=== PATIENT | male | born 1955 | race Caucasian/White ===

== ENCOUNTER 2017-05-31 11:29 | Day surgery (SDC) | payer BC ==
[~2017-05-31 11:29] MED LIST: CEPH500C3 PO; PRIL20TA2 PO
[2017-05-31] MEDS ORDERED: PROPOFOL 200 MG/20 ML AMP IV ONE (11:55)
[2017-05-31] MEDS ORDERED: NIAC500T5 PO (12:12)
[2017-05-31] MEDS ORDERED: APIX5TAB PO (12:12)
[2017-05-31] MEDS ORDERED: VITA250T3 PO (12:12)
[2017-05-31] MEDS ORDERED: METO50TA PO (12:12)
[2017-05-31] MEDS ORDERED: CHOL5000 PO (12:12)
[2017-05-31] MEDS ORDERED: OMEP20TA PO (12:12)
[2017-05-31] MEDS ORDERED: DILT120C9 PO (12:12)
[2017-05-31] MEDS ORDERED: DIGO0.25 PO (12:12)
[2017-05-31] MEDS ORDERED: CHLORHEXIDINE GLUCONATE 2 % 1 PACK (2 CLOTHS) TOPICAL PRN (12:30)
[2017-05-31] MEDS ORDERED: SODIUM CHLORID 0.9% 500 ML IV PRN (12:30)
[2017-05-31] MEDS ORDERED: POVIDONE IODINE 5% (ANTISEPSIS KIT) 4 APPLICATIONS EACH NARE PRN (12:30)
[2017-05-31] MEDS ORDERED: LACTATED RINGER'S 1000 ML IV PRN (12:30)
[2017-05-31] MEDS ORDERED: INSULIN HUMAN REGULAR 1,000 UNITS/10 ML VIAL SQ PRN (12:30)
[2017-05-31] MEDS ORDERED: METOPROLOL TARTRATE 25 MG TAB PO PRN (12:30)
--- NOTE | 2017-06-01 21:01 | EKG ---
Date Performed: 05/31/2017 Time Performed: 12:47:00 PTAGE: 62 years EKG: Atrial fibrillation. Consider anterolateral ischemia Abnormal ECG NO PREVIOUS TRACING DOCTOR: Mayur Ellis Interpretating Date/Time 06/01/2017 21:00:10
--- NOTE | 2017-06-01 23:09 | MR ---
cc: ITZEL OCHOA MD DATE 05/31/17 INDICATIONS Atrial fibrillation with rapid ventricular response. PROCEDURE PERFORMED DC cardioversion. PROCEDURE After the patient was sedated by anesthesia 200 joules biphasic shock was delivered and converted the patient to sinus bradycardia. The patient remained stable, discharged to home in stable condition. DIAGNOSIS Successful cardioversion of atrial fibrillation. DISPOSITION Mr. Heath will continue his current medical program. I will see him back for followup in our office after discharge. Itzel Ochoa MD OQ/EO /3:21 PM /10:59 PM
== END 2017-05-31 16:04 | disposition home or self-care (01) ==
LOC: HDOC 11:29 → HDIC 11:30 → HDOC 16:04
PROVIDERS: ATTEND Internal Medicine Interventional Cardiology
DX: I48.91 Unspecified atrial fibrillation (principal); E78.5 Hyperlipidemia, unspecified; I73.9 Peripheral vascular disease, unspecified; K21.9 Gastro-esophageal reflux disease without esophagitis; K57.90 Diverticulosis of intestine, part unspecified, without perforation or abscess without bleeding; K22.70 Barrett's esophagus without dysplasia; Z79.01 Long term (current) use of anticoagulants; Z79.899 Other long term (current) drug therapy
CPT/HCPCS: 92960; 93005

== ENCOUNTER 2017-06-07 11:20 | Day surgery (SDC) | payer BC ==
[~2017-06-07 11:20] MED LIST changes: +APIX5TAB PO; -CEPH500C3 PO; +CHOL5000 PO; +DIGO0.25 PO; +DILT120C9 PO; +METO50TA PO; +NIAC500T5 PO; +OMEP20TA PO; -PRIL20TA2 PO; +PROPOFOL 200 MG/20 ML AMP IV ONE; +VITA250T3 PO; +ePHEDrine/NS 25 MG/5 ML SYR IV ONE
[2017-06-07] MEDS ORDERED: METOPROLOL TARTRATE 25 MG TAB PO PRN (11:45)
[2017-06-07] MEDS ORDERED: CHLORHEXIDINE GLUCONATE 2 % 1 PACK (2 CLOTHS) TOPICAL PRN (11:45)
[2017-06-07] MEDS ORDERED: LACTATED RINGER'S 1000 ML IV PRN (11:45)
[2017-06-07] MEDS ORDERED: INSULIN HUMAN REGULAR 1,000 UNITS/10 ML VIAL SQ PRN (11:45)
[2017-06-07] MEDS ORDERED: SODIUM CHLORID 0.9% 500 ML IV PRN (11:45)
[2017-06-07] MEDS ORDERED: DILT120C9 PO (11:54)
[2017-06-07] MEDS ORDERED: MULT400T PO (11:54)
--- NOTE | 2017-06-08 07:32 | MR ---
cc: ITZEL OCHOA DATE: 06/07/2017 INDICATION Atrial fibrillation, recurrent. PROCEDURE PERFORMED DC cardioversion. PROCEDURE After the patient was sedated by Anesthesia, a 200 joule biphasic shock was delivered and converted the patient into sinus rhythm. The patient remained stable and was discharged home in stable condition. DIAGNOSIS Successful cardioversion of atrial fibrillation. DISPOSITION Mr. Heath will continue his current medical program including antiarrhythmic therapy with Multaq. I will see him back for follow-up in our office after discharge. Itzel Ochoa MD OQ/LUCITA /2:28 PM /7:26 AM
--- NOTE | 2017-06-08 11:55 | EKG ---
Date Performed: 06/07/2017 Time Performed: 11:35:44 PTAGE: 62 years EKG: Atrial fibrillation. Septal ST-T changes are nonspecific Compared to prior tracing no signi ficant change Abnormal ECG PREVIOUS TRACING : 05/31/2017 12.47 DOCTOR: Rich Casper Interpretating Date/Time 06/08/2017 11:53:34
--- NOTE | 2017-06-08 12:23 | EKG ---
Date Performed: 06/07/2017 Time Performed: 15:30:10 PTAGE: 62 years EKG: Sinus bradycardia. Ant/septal and lateral T wave changes are nonspecific Borderline ECG PREVIOUS TRACING : 06/07/2017 11.35 Sinus rhythm has replaced atrial fibrillation from the old tracing. DOCTOR: Rich Casper Interpretating Date/Time 06/08/2017 12:21:22
== END 2017-06-07 15:39 | disposition home or self-care (01) ==
LOC: HDOC 11:20 → HDIC 11:21 → HDOC 15:39
PROVIDERS: ATTEND Internal Medicine Interventional Cardiology
DX: I48.0 Paroxysmal atrial fibrillation (principal); E78.5 Hyperlipidemia, unspecified; I73.9 Peripheral vascular disease, unspecified; K21.9 Gastro-esophageal reflux disease without esophagitis; Z85.828 Personal history of other malignant neoplasm of skin; Z87.891 Personal history of nicotine dependence; Z79.01 Long term (current) use of anticoagulants; Z79.899 Other long term (current) drug therapy
CPT/HCPCS: 92960; 93005

== ENCOUNTER 2017-08-03 20:19 | Observation (INO) | payer BC ==
[~2017-08-03] VITALS: Ht 172.7 cm; Wt 85.0 kg
[~2017-08-03 20:19] MED LIST changes: +AMIO200T PO; -DIGO0.25 PO; -DILT120C9 PO; +MULT400T PO; -OMEP20TA PO; +OMEP20TA93 PO; -PROPOFOL 200 MG/20 ML AMP IV ONE; -ePHEDrine/NS 25 MG/5 ML SYR IV ONE
[2017-08-03 20:25] VITALS: BP 176/92; PULSE 53; RESP 16; TEMP 97.8; O2SAT 97
[2017-08-03] MEDS ORDERED: COQ130CA PO (20:34)
[2017-08-03] MEDS ORDERED: AMLO5TAB2 PO (20:34)
[2017-08-03 21:08] LABS: AUTOMATED NEUTROPHIL # 3.7 TH/MM3 (1.8-7.7); BASOPHIL % 0.7 % (0.0-2.0); EOSINOPHIL # 0.1 TH/MM3 (0-0.4); EOSINOPHIL % 2.6 % (0.0-4.0); HEMATOCRIT 45.8 % (39.0-51.0); HEMO FLAGS DIFF FINAL; LYMPHOCYTE # 0.7 TH/MM3 (1.0-4.8); MEAN CORPUSCULAR HEMOGLOBIN 30.4 PG (27.0-34.0); MEAN CORPUSCULAR HGB CONC 34.1 % (32.0-36.0); NEUT % 74.7 % (16.0-70.0); PLATELET COUNT 115 TH/MM3 (150-450); RED BLOOD COUNT 5.15 MIL/MM3 (4.50-5.90); RED CELL DISTRIBUTION WIDTH 14.5 % (11.6-17.2); WHITE BLOOD COUNT 4.9 TH/MM3 (4.0-11.0)
[2017-08-03 21:20] LABS: APTT (PATIENT) 30.1 SEC (24.3-30.1); PROTHROMBIN TIME - PATIENT 10.9 SEC (9.8-11.6)
[2017-08-03] MEDS ORDERED: SODIUM CHLORIDE 0.9% FLUSH 10 ML FLUSH IVF PRN (21:30)
[2017-08-03] MEDS ORDERED: SODIUM CHLORID 0.9% 500 ML INJ 500 ML IV ONE (21:30)
[2017-08-03 21:41] LABS: ALT (GPT) 23 U/L (12-78); ANION GAP 5 MEQ/L (5-15); AST (GOT) 14 U/L (15-37); BICARBONATE 29.3 MEQ/L (21.0-32.0); BLOOD UREA NITROGEN 17 MG/DL (7-18); CHLORIDE 104 MEQ/L (98-107); GLOMERULAR FILTRATION RATE 69 ML/MIN (>89); POTASSIUM 4.4 MEQ/L (3.5-5.1); SODIUM (NA) 138 MEQ/L (136-145)
[2017-08-03 21:44] LABS: ALKALINE PHOSPHATASE 70 U/L (45-117); TOTAL BILIRUBIN ADULT 0.5 MG/DL (0.2-1.0)
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
[2017-08-03 22:29] LABS: BLOOD, URINE NEG (NEG); GLUCOSE,URINE NEG (NEG); KETONE, URINE NEG (NEG); NITRITE,URINE NEG (NEG); URINE COLOR YELLOW (YELLW/STRAW)
[2017-08-03 22:33] LABS: COMMENT (UR) CULT NOT INDICATED; CULTURE IF INDICATED CULT NOT INDICATED
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
--- NOTE | 2017-08-03 22:35 | RADRPT ---
EXAM DATE/TIME: 08/03/2017 21:30 [facility] COMPARISON: No previous studies available for comparison. INDICATIONS : Syncopal episode. MEDICAL HISTORY : None. SURGICAL HISTORY : CABG. ENCOUNTER: Initial ACUITY: 1 day PAIN SCORE: 0/10 LOCATION: Bilateral chest FINDINGS: A single view of the chest demonstrates the lungs to be symmetrically aerated without evidence of mas s, infiltrate or effusion. Mild linear atelectasis at the lower lateral lung base. No evidence of p neumothorax. The cardiomediastinal contours are unremarkable. Osseous structures are intact. CONCLUSION: Mild left lower lung atelectasis. Otherwise negative exam. Harris Jolly MD on August 03, 2017 at 22:33 Board Certified Radiologist. This report was verified electronically.
--- NOTE | 2017-08-03 22:37 | RADRPT ---
EXAM DATE/TIME: 08/03/2017 21:46 [facility] COMPARISON: No previous studies available for comparison. INDICATIONS : Dizziness. RADIATION DOSE: 35.79 CTDIvol (mGy) MEDICAL HISTORY : Cardiovascular disease. Gastroesophageal reflux disease. SURGICAL HISTORY : Discectomy, lumbar. ENCOUNTER: Initial ACUITY: 1 day PAIN SCALE: 0/10 LOCATION: cranial TECHNIQUE: Multiple contiguous axial images were obtained of the head. Using automated exposure control and adj ustment of the mA and/or kV according to patient size, radiation dose was kept as low as reasonably a chievable to obtain optimal diagnostic quality images. DICOM format image data is available electro nically for review and comparison. FINDINGS: CEREBRUM: The ventricles are normal for age. No evidence of midline shift, mass lesion, hemorrhage or acute in farction. No extra-axial fluid collections are seen. POSTERIOR FOSSA: The cerebellum and brainstem are intact. The 4th ventricle is midline. The cerebellopontine angle i s unremarkable. EXTRACRANIAL: The visualized portion of the orbits is intact. Mild mucosal thickening in the posterior medial left maxillary sinus. SKULL: The calvaria is intact. No evidence of skull fracture. CONCLUSION: 1. Age-appropriate atrophy. 2. Mild left maxillary sinus disease. Harris Jolly MD on August 03, 2017 at 22:34 Board Certified Radiologist. This report was verified electronically.
[2017-08-03 22:57] VITALS: BP 192/89; PULSE 51; RESP 18; O2SAT 97
[2017-08-03] MEDS ORDERED: GADODIAMIDE PF 287 MG/ML 5 ML VIAL (for RAD MRI) IVCONTRAST ONE (23:07)
[2017-08-03 23:38] VITALS: BP 153/73; PULSE 47; RESP 18; O2SAT 96
[2017-08-03 23:59] LABS: CREATINE KINASE 78 U/L (39-308)
[2017-08-04] MEDS ORDERED: BISACODYL 10 MG SUPP RECTAL PRN (00:45)
[2017-08-04] MEDS ORDERED: ACETAMINOPHEN 325 MG TAB PO PRN (00:45)
[2017-08-04] MEDS ORDERED: SODIUM CHLORIDE 0.9% FLUSH 10 ML FLUSH IV FLUSH PRN (00:45)
[2017-08-04] MEDS ORDERED: MAGNESIUM HYDROXIDE SUSP 30 ML CUP PO PRN (00:45)
[2017-08-04] MEDS ORDERED: SENNOSIDES 8.6 MG TAB PO PRN (00:45)
[2017-08-04] MEDS ORDERED: LACTULOSE SYRUP 20 GM/30 ML CUP PO PRN (00:45)
[2017-08-04] MEDS ORDERED: ONDANSETRON HCL 4 MG/2 ML VIAL IVP PRN (00:45)
[2017-08-04] MEDS ORDERED: NALOXONE HCL 0.4 MG/ML AMP IV PUSH PRN (00:45)
--- NOTE | 2017-08-04 00:58 | HHI.HP ---
[facility] Primary Care Physician Mary Ellen Majano MD Admission Diagnosis symptomatic bradycardia, presyncope Diagnoses: Travel History International Travel<30 Days: No Contact w/Intl Traveler <30 Da: No Traveled to Known Affected Are: No History of Present Illness 62-year-old male with a past medical history significant for atrial fibrillation , status post ablation on 07/14, hypertension and GERD presents after a presyncopal episode. The patient reports he was [place] on the freeway when he had a terrible right-sided headache, tunnel vision with accompanying lightheadedness. He felt as though he was going to pass out and pulled over. The sensation then resolved and he was able to continue driving. Patient reports he had an episode similar to this on 06/28 which was worked up at [facility]. Patient was found to be bradycardic in the emergency department with lowest recorded heart rate of 47. EKG showed sinus bradycardia with a heart rate of 54. The patient had carotid ultrasound and DARCI done on 07/14/17 which were within normal limits. His data analytics developer is Dr. Ochoa. He takes amiodarone, metoprolol and amlodipine daily. Review of Systems Denies fever or chills Denies blurry vision, otorrhea, rhinorrhea Positive headache Denies sore throat and cough No chest pain, palpitations, shortness of breath No abdominal pain Denies constipation/diarrhea/nausea/vomiting Denies muscle pain/weakness No rashes Past Family Social History Past Medical History Atrial fibrillation status post 3 cardioversions and an ablation on 07/14/2017 at [facility] in [place] Hypertension GERD Past Surgical History Bilateral popliteal aneurysm repairs Remote history of inguinal hernia repair L5-S1 discectomy Reported Medications Reported Meds & Active Scripts Active Reported Amlodipine (Amlodipine Besylate) 5 Mg Tab 5 Mg PO DAILY Coq10 (Coenzyme Q10 (Ubidecarenone)) 30 Mg Cap 1 Tab PO DAILY Amiodarone (Amiodarone HCl) 200 Mg Tab 200 Mg PO BID Vitamin D3 (Cholecalciferol) 5,000 Unit Cap 5,000 Units PO DAILY Metoprolol Tartrate 50 Mg Tab 50 Mg PO BID Eliquis (Apixaban) 5 Mg Tab 5 Mg PO BID Omeprazole 20 Mg Tab 20 Mg PO DAILY Niacin 500 Mg Tab 500 Mg PO BID Vitamin C (Ascorbic Acid) 250 Mg Tab 400 Mg PO Allergies: Coded Allergies: shellfish derived (Verified Allergy, Severe, Anaphylaxis, 08/03/17) iodine (Verified Allergy, Unknown, 05/31/17) levofloxacin (Verified Allergy, Unknown, 05/31/17) Family History Mother with atrial fibrillation and a CVA. Social History Quit tobacco 10 years ago, has a [id number] history of smoking. Denies alcohol and illicit drugs. Physical Exam Vital Signs Vital Signs Date Time Temp Pulse Resp B/P (MAP) Pulse Ox O2 Delivery O2 Flow Rate FiO2 08/03/17 23:38 47 18 153/73 (99) 96 Room Air 08/03/17 22:57 51 18 192/89 (123) 97 Room Air 08/03/17 20:57 Room Air 08/03/17 20:25 97.8 53 16 176/92 (120) 97 Physical Exam GENERAL: male sitting up in bed SKIN: No rashes, ecchymoses or lesions. Cool and dry. HEAD: Atraumatic. Normocephalic. No temporal or scalp tenderness. EYES: Pupils equal round and reactive. Extraocular motions intact. No scleral icterus. No injection or drainage. ENT: Nose without bleeding, purulent drainage or septal hematoma. Throat without erythema, tonsillar hypertrophy or exudate. Uvula midline. Airway patent. NECK: Trachea midline. No JVD or lymphadenopathy. Supple, nontender, no meningeal signs. CARDIOVASCULAR: Bradycardia. Regular rhythm. No murmurs/rubs/gallops. RESPIRATORY: Clear to auscultation. Breath sounds equal bilaterally. No wheezes , rales, or rhonchi. GASTROINTESTINAL: Abdomen soft, non-tender, nondistended. No hepato-splenomegaly , or palpable masses. No guarding. MUSCULOSKELETAL: Extremities without clubbing, cyanosis, or edema. No joint tenderness, effusion, or edema noted. No calf tenderness. Negative Homans sign bilaterally. NEUROLOGICAL: Awake and alert. Cranial nerves II through XII intact. Motor and sensory grossly within normal limits. Normal speech. Laboratory Laboratory Tests Test 08/03/17 20:50 08/03/17 22:20 White Blood Count 4.9 Red Blood Count 5.15 Hemoglobin 15.6 Hematocrit 45.8 Mean Corpuscular Volume 89.0 Mean Corpuscular Hemoglobin 30.4 Mean Corpuscular Hemoglobin Concent 34.1 Red Cell Distribution Width 14.5 Platelet Count 115 Mean Platelet Volume 10.6 Neutrophils (%) (Auto) 74.7 Lymphocytes (%) (Auto) 14.0 Monocytes (%) (Auto) 8.0 Eosinophils (%) (Auto) 2.6 Basophils (%) (Auto) 0.7 Neutrophils # (Auto) 3.7 Lymphocytes # (Auto) 0.7 Monocytes # (Auto) 0.4 Eosinophils # (Auto) 0.1 Basophils # (Auto) 0.0 CBC Comment DIFF FINAL Differential Comment Prothrombin Time 10.9 Prothromb Time International Ratio 1.0 Activated Partial Thromboplast Time 30.1 Blood Urea Nitrogen 17 Creatinine 1.08 Random Glucose 102 Total Protein 7.0 Albumin 3.6 Calcium Level 8.0 Magnesium Level 2.0 Alkaline Phosphatase 70 Aspartate Amino Transf (AST/SGOT) 14 Alanine Aminotransferase (ALT/SGPT) 23 Total Bilirubin 0.5 Sodium Level 138 Potassium Level 4.4 Chloride Level 104 Carbon Dioxide Level 29.3 Anion Gap 5 Estimat Glomerular Filtration Rate 69 Total Creatine Kinase 78 Troponin I LESS THAN 0.02 Urine Color YELLOW Urine Turbidity HAZY Urine pH 7.0 Urine Specific Strunk 1.015 Urine Protein NEG Urine Glucose (UA) NEG Urine Ketones NEG Urine Occult Blood NEG Urine Nitrite NEG Urine Bilirubin NEG Urine Urobilinogen LESS THAN 2.0 Urine Leukocyte Esterase NEG Urine RBC 1 Urine WBC 1 Microscopic Urinalysis Comment CULT NOT INDICATED Result Diagram: 08/03/17204908/03/172049 Caprini VTE Risk Assessment Caprini VTE Risk Assessment: Mod/High Risk (score >= 2) Caprini Risk Assessment Model Point Value = 1 Point Value = 2 Point Value = 3 Point Value = 5 Age 41-60 Minor surgery BMI > 25 kg/m2 Swollen legs Varicose veins or History of unexplained or recurrent spontaneous Oral contraceptives or hormone replacement Sepsis (< 1 month) Serious lung disease, including pneumonia (< 1 month) Abnormal pulmonary function Acute myocardial infarction Congestive heart failure (< 1 month) History of inflammatory bowel disease Medical patient at bed rest Age 61-74 Arthroscopic surgery Major open surgery (> 45 min) Laparoscopic surgery (> 45 min) Malignancy Confined to bed (> 72 hours) Immobilizing plaster cast Central venous access Age >= 75 History of VTE Family history of VTE Factor V Leiden Prothrombin [id number] Lupus anticoagulant Anticardiolipin antibodies Elevated serum homocysteine Heparin-induced thrombocytopenia Other congenital or acquired thrombophilia Stroke (< 1 month) Elective arthroplasty Hip, pelvis, or leg fracture Acute spinal cord injury (< 1 month) Prophylaxis Regimen Total Risk Factor Score Risk Level Prophylaxis Regimen 0-1 Low Early ambulation 2 Moderate Order ONE of the following: *Sequential Compression Device (SCD) *Heparin 5000 units SQ BID 3-4 Higher Order ONE of the following medications: *Heparin 5000 units SQ TID *Enoxaparin/Lovenox 40 mg SQ daily (WT < 150 kg, CrCl > 30 mL/min) *Enoxaparin/Lovenox 30 mg SQ daily (WT < 150 kg, CrCl > 10-29 mL/min) *Enoxaparin/Lovenox 30 mg SQ BID (WT < 150 kg, CrCl > 30 mL/min) AND/OR *Sequential Compression Device (SCD) 5 or more Highest Order ONE of the following medications: *Heparin 5000 units SQ TID (Preferred with Epidurals) *Enoxaparin/Lovenox 40 mg SQ daily (WT < 150 kg, CrCl > 30 mL/min) *Enoxaparin/Lovenox 30 mg SQ daily (WT < 150 kg, CrCl > 10-29 mL/min) *Enoxaparin/Lovenox 30 mg SQ BID (WT < 150 kg, CrCl > 30 mL/min) AND *Sequential Compression Device (SCD) Assessment and Plan Assessment and Plan 62-year-old male with history of atrial fibrillation status post ablation, hypertension and GERD presents with presyncopal episode and symptomatic bradycardia. 1. Presyncope Patient with carotid ultrasound and DARCI within normal limits on 07/14/17, per patient report Requested records from [facility] in [place] Suspect secondary to bradycardia Decrease metoprolol to half patient's home dose Consulted patient's data analytics developer, Dr. Ochoa, appreciate recommendations 2. History of atrial fibrillation Patient status post ablation on 07/14/17 Continue home amiodarone, Eliquis, metoprolol at half dosing 3. Hypertension Continue home meds 4. GERD Continue PPI FEN Heart healthy diet Electrolytes: Monitor and replete when necessary On Eliquis Discussed with ER physician at length Shelbie Cuevas MD Aug 04, 2017 00:58
[2017-08-04 04:03] VITALS: PULSE 42
[2017-08-04 04:28] VITALS: BP 115/65; PULSE 47; RESP 18; TEMP 97.9; O2SAT 99
[2017-08-04] MEDS ORDERED: HEPARIN SODIUM - SQ 10,000 UNITS/ML VIAL SQ SCH (06:00)
[2017-08-04 06:55] LABS: AUTOMATED NEUTROPHIL # 2.9 TH/MM3 (1.8-7.7); BASOPHIL % 0.7 % (0.0-2.0); EOSINOPHIL # 0.2 TH/MM3 (0-0.4); EOSINOPHIL % 4.2 % (0.0-4.0); HEMATOCRIT 42.5 % (39.0-51.0); LYMPHOCYTE # 0.7 TH/MM3 (1.0-4.8); MEAN CELL VOLUME 89.7 FL (80.0-100.0); MEAN CORPUSCULAR HGB CONC 33.4 % (32.0-36.0); MONO % 8.6 % (0.0-8.0); NEUT % 70.5 % (16.0-70.0); PLATELET COUNT 99 TH/MM3 (150-450); RED BLOOD COUNT 4.74 MIL/MM3 (4.50-5.90); RED CELL DISTRIBUTION WIDTH 14.3 % (11.6-17.2); WHITE BLOOD COUNT 4.1 TH/MM3 (4.0-11.0)
[2017-08-04 07:09] LABS: BICARBONATE 28.2 MEQ/L (21.0-32.0); POTASSIUM 3.9 MEQ/L (3.5-5.1)
[2017-08-04 07:14] LABS: HEMO FLAGS AUTO DIFF
[2017-08-04 07:45] VITALS: BP 134/74; PULSE 50; RESP 20; TEMP 97.5; O2SAT 97
[2017-08-04] MEDS ORDERED: APIXABAN 5 MG TABLET PO SCH (09:00)
[2017-08-04] MEDS ORDERED: PNEUMOCOCCAL POLYVALENT INJ 25 MCG/0.5 ML SYR IM ONE (09:00)
[2017-08-04] MEDS ORDERED: PANTOPRAZOLE SOD 20 MG DELAYED RELEASE TAB PO SCH (09:00)
[2017-08-04] MEDS ORDERED: SODIUM CHLORIDE 0.9% FLUSH 10 ML FLUSH IV FLUSH SCH (09:00)
[2017-08-04] MEDS ORDERED: AMIODARONE 200 MG TAB PO SCH (09:00)
[2017-08-04] MEDS ORDERED: METOPROLOL TARTRATE 25 MG TAB PO SCH (09:00)
[2017-08-04] MEDS ORDERED: DOCUSATE SODIUM 50 MG/SENNA 8.6 MG TAB PO SCH (09:00)
[2017-08-04] MEDS ORDERED: amLODIPine BESYLATE 5 MG TAB PO SCH (09:00)
[2017-08-04 09:08] LABS: PLATELET ESTIMATE SMEAR LOW (NORMAL); PLATELET MORPHOLOGY ENLARGED (NORMAL); SCAN/DIFF AUTO DIFF CONFIRMED
--- NOTE | 2017-08-04 09:24 | HHI.PR ---
Subjective Remarks Follow up for presyncope, bradycardia. The patient reports feeling well this morning, denies any lightheadedness, dizziness, chest pain, palpitations, or shortness of breath. He is concerned about the etiology of his symptoms. This is the second episode that occurred while driving. He explains that he experiences severe pressure pains behind the right eye after these episodes. Denies ever having an MRI. He reports he has been taking his amiodarone and metoprolol 50mg bid in the morning, and norvasc 5mg at 7pm. He states his norvasc was recently cut in half by Dr. Ochoa. He started taking his metoprolol again 1 week after after his blood pressure was over 200. He has been on the same dose of amiodarone since his ablation. Objective Vitals Vital Signs Date Time Temp Pulse Resp B/P (MAP) Pulse Ox O2 Delivery O2 Flow Rate FiO2 08/04/17 07:45 97.5 50 20 134/74 (94) 97 08/04/17 04:28 97.9 47 18 115/65 (82) 99 08/04/17 04:03 42 08/03/17 23:38 47 18 153/73 (99) 96 Room Air 08/03/17 22:57 51 18 192/89 (123) 97 Room Air 08/03/17 20:57 Room Air 08/03/17 20:25 97.8 53 16 176/92 (120) 97 I/O 08/03/17 08/03/17 08/03/17 08/04/17 08/04/17 08/04/17 07:00 15:00 23:00 07:00 15:00 23:00 Intake Total 242 ml Balance 242 ml Intake Oral 242 ml # Voids 3 Result Diagram: 08/04/17 0555 08/04/17 0555 Imaging Last Impressions Head CT 08/03/172118 Signed Impressions: Service Date/Time: Thursday, August 03, 2017 21:46 - CONCLUSION: 1. Age-appropriate atrophy. 2. Mild left maxillary sinus disease. Harris Jolly MD Chest X-Ray 08/03/172118 Signed Impressions: Service Date/Time: Thursday, August 03, 2017 21:30 - CONCLUSION: Mild left lower lung atelectasis. Otherwise negative exam. Harris Jolly MD Objective Remarks GENERAL: Well-nourished, well-developed middle aged male patient in NAD. SKIN: Warm and dry. No rash. HEENT: Normocephalic. Atraumatic.Pupils equal and round. Mucous membranes pink and moist. NECK: Supple. Trachea midline. CARDIOVASCULAR: Bradycardic, regular rhythm. S1, S2 noted. No murmur appreciated. RESPIRATORY: No accessory muscle use. Clear to auscultation. Breath sounds equal bilaterally. GASTROINTESTINAL: Abdomen soft, non-tender, nondistended. Normoactive bowel sounds x4. MUSCULOSKELETAL: No obvious deformities. Extremities without clubbing, cyanosis , or edema. Left cuello with abrasion and contusion. NEUROLOGICAL: Awake and alert. No obvious cranial nerve deficits. Motor grossly within normal limits. Normal speech. PSYCHIATRIC: Appropriate mood and affect; insight and judgment normal. Medications and IVs Current Medications Medications (Trade) Dose Ordered Sig/Jen Route Start Time Stop Time Status Last Admin (NS Flush) 2 ml UNSCH PRN IV FLUSH 08/04/17 00:45 (NS Flush) 2 ml BID IV FLUSH 08/04/17 09:00 (Tylenol) 650 mg Q4H PRN PO 08/04/17 00:45 (Zofran Inj) 4 mg Q6H PRN IVP 08/04/17 00:45 (Narcan Inj) 0.4 mg UNSCH PRN IV PUSH 08/04/17 00:45 (Carin-Colace) 1 tab BID PO 08/04/17 09:00 (Milk Of Magnesia Liq) 30 ml Q12H PRN PO 08/04/17 00:45 (Senokot) 17.2 mg Q12H PRN PO 08/04/17 00:45 (Dulcolax Supp) 10 mg DAILY PRN RECTAL 08/04/17 00:45 (Lactulose Liq) 30 ml DAILY PRN PO 08/04/17 00:45 (Cordarone) 200 mg BID PO 08/04/17 09:00 (Norvasc) 5 mg DAILY PO 08/04/17 09:00 (Eliquis) 5 mg BID PO 08/04/17 09:00 (Protonix) 20 mg DAILY PO 08/04/17 09:00 (Lopressor) 25 mg Q12HR PO 08/04/17 09:00 A/P Assessment and Plan 62-year-old male with history of atrial fibrillation status post ablation, hypertension and GERD presents with presyncopal episode and symptomatic bradycardia. Presyncope, suspect Symptomatic Bradycardia: HR in upper 40s upon arrival. EKG reviewed, shows sinus rk with HR 54. -Patient with carotid ultrasound and DARCI within normal limits on 07/14/17, per patient report -Requested records from [facility] in [place] -Decreased metoprolol to half patient's home dose, with hold parameters -Consulted patient's pond sawyer, Dr. Ochoa, appreciate recommendations Headache: patient reports severe right sided headaches after these presyncope episodes -head CT reviewed and unremarkable -check Brain MRI -currently headache resolved History of atrial fibrillation: Patient status post ablation on 07/14/17 -Continue home amiodarone, Eliquis, metoprolol at half dosing Hypertension -Continue home meds GERD -Continue PPI DVT Prophylaxis: on Macy Wolff PA-C Aug 04, 2017 9:24 am
--- NOTE | 2017-08-04 09:33 | EKG ---
Date Performed: 08/03/2017 Time Performed: 20:45:09 PTAGE: 62 years EKG: SINUS BRADYCARDIA WITH FREQUENT SUPRAVENTRICULAR PREMATURE COMPLEXES IN A BIGEMINAL PATTERN ABNORMAL RHYTHM ECG PREVIOUS TRACING : 06/07/2017 15.30 DOCTOR: Piyush Valencia Interpretating Date/Time 08/04/2017 09:33:16
--- NOTE | 2017-08-04 11:22 | MB ---
cc: YVONNE REHMAN DATE OF CONSULTATION: 08/04/2017 HISTORY OF PRESENT ILLNESS Mr. Heath is a 62-year-old white male, well known to my practice with a history of atrial fibrillation status post ablation on 07/13/2017. He developed right-sided headache, tunnel vision and lightheadedness when he was driving. He pulled over and his symptoms resolved. He was found to be bradycardic with heart rate of 47 and later down to 38. Currently he has no cardiac symptoms. He has not had any chest pain or shortness of breath. His blood pressure has been elevated. He has had sinus congestion for the last two weeks. PAST MEDICAL HISTORY Positive for: 1. ___ atrial fibrillation. 2. History of cardioversion and ablation at [facility] three weeks ago. 3. Hypertension. 4. Gastroesophageal reflux disease. 5. Bilateral popliteal aneurysm repair. 6. Remote history of inguinal hernia repair. 7. L5-S1 discectomy. ECHOCARDIOGRAM Echocardiogram showed borderline normal left ventricular systolic function with an ejection fraction of 50%. IMAGING STUDIES PET scan on 06/15/2017 showed fixed inferobasal defect suggestive of inferobasal infarction but no evidence of ischemia. MEDICATION Medications at home include: 1. Amiodarone 200 mg a day. 2. Eliquis 5 mg twice a day. 3. Metoprolol 50 mg twice a day. 4. Vitamin D3. 5. Coenzyme Q10. 6. Vitamin C. 7. Niacin. 8. Omeprazole. 9. Fluticasone. 10. Amlodipine 5 mg a day. The patient has been also taking Tylenol sinus medication for his congestion. ALLERGIES LEVAQUIN, IODINE, SHELLFISH AND CONTRAST. SOCIAL HISTORY The patient does not smoke, quit smoking 10 years ago. He does not drink alcohol. FAMILY HISTORY Positive for CVA and atrial fibrillation in his mother. REVIEW OF SYSTEMS Review of systems is otherwise negative. PHYSICAL EXAMINATION VITAL SIGNS: Blood pressure 134/74, pulse 50 and regular. HEENT: Negative. NECK: 2+ carotid upstrokes. No bruits. LUNGS: Clear. HEART: Regular with no murmur, gallop or rub. ABDOMEN: Soft. No bruits. EXTREMITIES: Without edema. 2+ distal pulses. NEUROLOGIC: Grossly nonfocal. EKG EKG was reviewed and showed sinus bradycardia, PACs, no acute changes. LABORATORY DATA Hemoglobin 14.2, potassium 3.9, creatinine 1.0, AST 14, ALT 23, troponin normal. DIAGNOSIS 1. Presyncope. 2. ___ atrial fibrillation, status post ablation. 3. Hypertension. 4. Gastroesophageal reflux disease. DISPOSITION Mr. Heath will decrease his metoprolol dose. He remains stable from cardiac standpoint. He will continue antiarrhythmic therapy with amiodarone. He has stayed in sinus rhythm since his ablation. He can be discharged home from a cardiac standpoint. I will see him back for followup in our office in 2 weeks as outpatient. MD LUCAS Berman/TLL /10:36 AM /10:53 AM
[2017-08-04 12:16] VITALS: BP 133/79; PULSE 58; RESP 22; TEMP 98.2; O2SAT 96
--- NOTE | 2017-08-04 13:41 | RADRPT ---
EXAM DATE/TIME: 08/04/2017 11:41 [facility] COMPARISON: No previous studies available for comparison. INDICATIONS : Syncope MEDICAL HISTORY : Cardiovascular disease. Gastroesophageal reflux disease SURGICAL HISTORY : Discectomy, lumbar ENCOUNTER: Subsequent ACUITY: 4-6 days PAIN SCORE: 0/10 LOCATION: cranial Please note a normal MRA of the brain does not entirely exclude the possibility of a small aneurysm, nor the possibility of distal intracranial vessel disease. TECHNIQUE: 3D time of flight MRA was performed. Source images, multiplanar STS MIP, and 3D volume MIP reconstru ctions were reviewed. FINDINGS: Anterior circulation: Distal intracranial internal carotid arteries are patent with flow extending to the middle and anteri or cerebral arteries. There is no evidence for aneurysm, vessel truncation or stenosis, and no eviden ce for vascular malformation. Posterior circulation: Symmetric distal vertebral arteries with flow extending to basilar artery. There is no evidence for aneurysm, vessel truncation or stenosis, and no evidence for vascular malformation. CONCLUSION: 1. Unremarkable MRA examination of the brain. Specifically, patent symmetrical distal vertebral arter ies with patent basilar artery. Olaf Whipple MD on August 04, 2017 at 13:37 Board Certified Radiologist. This report was verified electronically.
--- NOTE | 2017-08-04 13:51 | RADRPT ---
EXAM DATE/TIME: 08/04/2017 11:41 [facility] COMPARISON: CT BRAIN W/O CONTRAST, August 03, 2017, 21:46. INDICATIONS : Syncope. CONTRAST: 15 cc Omniscan (gadodiamide) IV MEDICAL HISTORY : GERD, cardiovasucular disease SURGICAL HISTORY : Fusion, lumbar. ENCOUNTER: Subsequent ACUITY: 4-6 days PAIN SCORE: 0/10 LOCATION: cranial TECHNIQUE: Multiplanar, multisequence MRI of the brain was performed both prior to and following the administrat ion of paramagnetic contrast. FINDINGS: CEREBRUM: The ventricles are normal for age. No evidence of midline shift, mass lesion, hemorrhage or acute in farction. No extraaxial fluid collections are seen. The pituitary gland and suprasellar cistern are normal in configuration. WHITE MATTER: No significant signal abnormalities are seen in the white matter. POSTERIOR FOSSA: The cerebellum and brainstem are intact. The 4th ventricle is midline. The cerebellopontine angle is unremarkable. The cerebellar tonsils are normal in position. DIFFUSION IMAGING: No focal areas of restricted diffusion are seen. No evidence of acute infarction. EXTRACRANIAL: The visualized portions of the orbits and paranasal sinuses are unremarkable except for trace fluid i n the left maxillary sinus. POST-CONTRAST: No abnormal areas of parenchymal or dural enhancement. No evidence of blood-brain barrier breakdown. CONCLUSION: Normal examination. Piyush Christianson MD on August 04, 2017 at 13:48 Board Certified Radiologist. This report was verified electronically.
[2017-08-04] MEDS ORDERED: METO25TA3 PO (14:03)
--- NOTE | 2017-08-04 14:04 | HHI.DCPOC ---
Discharge Care Plan Diagnosis: (1) Near syncope (2) Symptomatic bradycardia Goals to Promote Your Health * To prevent worsening of your condition and complications * To maintain your health at the optimal level Directions to Meet Your Goals Take your medications as prescribed Follow your dietary instruction Follow activity as directed Keep your appointments as scheduled Take your immunizations and boosters as scheduled If your symptoms worsen call your PCP, if no PCP go to Urgent Care Center or Emergency Room Smoking is Dangerous to Your Health. Avoid second hand smoke Call the 24-hour hour crisis hotline for domestic abuse at Macy Merritt PA-C Aug 04, 2017 14:04
[2017-08-08] MEDS ORDERED: CLIN300C5 PO (10:45)
[2017-08-08] MEDS ORDERED: HYDR-3580 PO (10:52)
== END 2017-08-04 15:06 | disposition home or self-care (01) ==
LOC: NEPE 20:19 → NEDA 23:06 → NEPFCDU 08-04 01:25
PROVIDERS: ADMIT Hospitalist; ATTEND Hospitalist
DX: R55 Syncope and collapse (principal); I48.91 Unspecified atrial fibrillation; I10 Essential (primary) hypertension; K21.9 Gastro-esophageal reflux disease without esophagitis; R00.1 Bradycardia, unspecified; R51 Headache; R42 Dizziness and giddiness; H53.489 Generalized contraction of visual field, unspecified eye; J32.0 Chronic maxillary sinusitis; Z79.01 Long term (current) use of anticoagulants; Z87.891 Personal history of nicotine dependence; Z79.899 Other long term (current) drug therapy; Z95.1 Presence of aortocoronary bypass graft; Z98.1 Arthrodesis status
CPT/HCPCS: 70450; 70544; 70553; 71010; 80048; 80053; 81001; 82550; 82948; 83735; 84484; 85025; 85610; 85730; 93005; 96360; 99285; A9579; G0378; J7040

== ENCOUNTER 2017-12-11 09:39 | Emergency (ER) | payer BC ==
[~2017-12-11] VITALS: Ht 172.7 cm; Wt 85.0 kg
[~2017-12-11 09:39] MED LIST changes: +AMLO5TAB2 PO; +CLIN300C5 PO; +COQ130CA PO; +HYDR-3580 PO; +METO25TA3 PO; -METO50TA PO; -MULT400T PO
[2017-12-11 09:41] VITALS: BP 172/82; PULSE 57; RESP 15; TEMP 97.8; O2SAT 100
[2017-12-11] MEDS ORDERED: CIAL20TA PO (10:07)
[2017-12-11] MEDS ORDERED: FLUT50SP EACH NARE (10:07)
[2017-12-11 10:35] VITALS: BP 133/79; PULSE 48; RESP 18; O2SAT 96
[2017-12-11] MEDS ORDERED: SODIUM CHLORIDE 0.9% FLUSH 10 ML FLUSH IVF PRN (10:45)
[2017-12-11 10:59] LABS: AUTOMATED NEUTROPHIL # 2.8 TH/MM3 (1.8-7.7); BASOPHIL % 0.5 % (0.0-2.0); EOSINOPHIL % 1.2 % (0.0-4.0); HEMATOCRIT 41.7 % (39.0-51.0); HEMOGLOBIN 14.1 GM/DL (13.0-17.0); LYMPH % 15.3 % (9.0-44.0); LYMPHOCYTE # 0.6 TH/MM3 (1.0-4.8); MEAN CELL VOLUME 90.1 FL (80.0-100.0); MEAN CORPUSCULAR HEMOGLOBIN 30.4 PG (27.0-34.0); MEAN CORPUSCULAR HGB CONC 33.8 % (32.0-36.0); MEAN PLATELET VOLUME 10.4 FL (7.0-11.0); MONO % 9.9 % (0.0-8.0); MONOCYTE # 0.4 TH/MM3 (0-0.9); NEUT % 73.1 % (16.0-70.0); PLATELET COUNT 108 TH/MM3 (150-450); RED BLOOD COUNT 4.63 MIL/MM3 (4.50-5.90); WHITE BLOOD COUNT 3.8 TH/MM3 (4.0-11.0)
[2017-12-11 11:07] LABS: BLOOD UREA NITROGEN 18 MG/DL (7-18); CALCIUM 8.1 MG/DL (8.5-10.1); CHLORIDE 107 MEQ/L (98-107); CREATININE 0.91 MG/DL (0.60-1.30); GLOMERULAR FILTRATION RATE 84 ML/MIN (>89); GLUCOSE,RANDOM 95 MG/DL (74-106); SODIUM (NA) 139 MEQ/L (136-145)
[2017-12-11 11:11] LABS: TROPONIN I LESS THAN 0.02 NG/ML (0.02-0.05)
--- NOTE | 2017-12-11 11:55 | RADRPT ---
EXAM DATE/TIME: 12/11/2017 11:43 [facility] COMPARISON: CT BRAIN W/O CONTRAST, August 03, 2017, 21:46. INDICATIONS : Numbness in lips today. RADIATION DOSE: 56.35 CTDIvol (mGy) MEDICAL HISTORY : Cardiovascular disease. SURGICAL HISTORY : None. ENCOUNTER: Initial ACUITY: 1 day PAIN SCALE: 4/10 LOCATION: Bilateral head TECHNIQUE: Multiple contiguous axial images were obtained of the head. Using automated exposure control and adj ustment of the mA and/or kV according to patient size, radiation dose was kept as low as reasonably a chievable to obtain optimal diagnostic quality images. DICOM format image data is available electro nically for review and comparison. FINDINGS: CEREBRUM: The ventricles are normal for age. No evidence of midline shift, mass lesion, hemorrhage or acute in farction. No extra-axial fluid collections are seen. POSTERIOR FOSSA: The cerebellum and brainstem are intact. The 4th ventricle is midline. The cerebellopontine angle i s unremarkable. EXTRACRANIAL: The visualized portion of the orbits is intact. Mucosal thickening is noted in the left maxillary sin us. SKULL: The calvaria is intact. No evidence of skull fracture. CONCLUSION: Stable negative exam. Peter Schultz MD on December 11, 2017 at 11:51 Board Certified Radiologist. This report was verified electronically.
--- NOTE | 2017-12-11 12:31 | PD ---
HPI . Perioral numbness Chief Complaint: Numbness/Tingling Time Seen by Provider: 10:00 Travel History International Travel<30 days: No Contact w/Intl Traveler<30days: No Traveled to known affect area: No History of Present Illness HPI This patient presents stating that he was sent here by his doctor for the evaluation of perioral numbness. Onset was 1 PM yesterday. It lasted about an hour. He states that the severity was 9/10. The symptoms recurred this morning but are much less severe. He reports no other associated symptoms such as extremity weakness, facial weakness, difficulty speaking. 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) Cardiovascular Problems: Yes (AFIB) High Cholesterol: No Chemotherapy: No Chest Pain: No Congestive Heart Failure: No Diabetes: No Diminished Hearing: No Diverticulitis: Yes Endocrine: No Gastrointestinal Disorders: Yes ( BARRETTS) GERD: Yes Genitourinary: No Immune Disorder: No Musculoskeletal: Yes (TORN TENDON IN LT SHOULDER) Neurologic: No Psychiatric: No Reproductive: No Respiratory: No Immunizations Current: No Myocardial Infarction: Yes Radiation Therapy: No Tetanus Vaccination: > 5 Years Influenza Vaccination: Yes Past Surgical History Abdominal Surgery: Yes (b/l groin hernia repair as a child) Cardiac Surgery: Yes (heart ablation) Other Surgery: Yes (ABLATION, VASCULAR BYPASS BILAT LEGS, L5 S1 DISC REMOVAL, BILAT INGUINEAL) Social History Alcohol Use: No (no acohol since april) Tobacco Use: No Substance Use: No Allergies-Medications (Allergen,Severity, Reaction): Coded Allergies: shellfish derived (Verified Allergy, Severe, Anaphylaxis, 08/08/17) iodine (Verified Allergy, Unknown, 08/08/17) levofloxacin (Verified Allergy, Unknown, 08/08/17) Reported Meds & Prescriptions Reported Meds & Active Scripts Active Metoprolol Tartrate 25 Mg Tab 25 Mg PO Q12HR Reported Fluticasone Nasal [place] 50 Mcg/Act Naspr 50 Mcg EACH NARE BID 50 mcg/spray Amlodipine (Amlodipine Besylate) 5 Mg Tab 5 Mg PO DAILY Coq10 (Coenzyme Q10 (Ubidecarenone)) 30 Mg Cap 1 Tab PO DAILY Vitamin D3 (Cholecalciferol) 5,000 Unit Cap 5,000 Units PO DAILY Eliquis (Apixaban) 5 Mg Tab 5 Mg PO BID Omeprazole 20 Mg Tab 20 Mg PO DAILY Niacin 500 Mg Tab 500 Mg PO BID Vitamin C (Ascorbic Acid) 250 Mg Tab 400 Mg PO Review of Systems Except as stated in HPI: all other systems reviewed are Neg Physical Exam Narrative GENERAL: Awake and alert and in no distress. SKIN: warm/dry. HEAD: Normocephalic. Atraumatic. EYES: Pupils equal and round. No scleral icterus. No injection or drainage. ENT: No nasal bleeding or discharge. Mucous membranes pink and moist. NECK: Trachea midline. Full range of motion without pain.. CARDIOVASCULAR: Regular rate and rhythm. RESPIRATORY: No accessory muscle use. Clear to auscultation. Breath sounds equal bilaterally. MUSCULOSKELETAL: No obvious deformities. NEUROLOGICAL: Awake and alert. Normal and equal muscular strength on forehead wrinkling, eye closing, smiling and tongue protruding. That is, there are no obvious cranial nerve deficits. 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 Finger- nose-finger exam is intact. Gait is normal. PSYCHIATRIC: Appropriate mood and affect; insight and judgment normal. Data Data Last Documented VS Vital Signs Date Time Temp Pulse Resp B/P (MAP) Pulse Ox O2 Delivery O2 Flow Rate FiO2 12/11/17 10:08 Room Air 12/11/17 09:41 97.8 57 15 172/82 (112) 100 Orders Orders Electrocardiogram (12/11/17 ) Complete Blood Count With Diff (12/11/17 10:31) Basic Metabolic Panel (Bmp) (12/11/17 10:31) Troponin I (12/11/17 10:31) Ct Brain W/O Iv Contrast(Rout) (12/11/17 10:31) Ecg Monitoring (12/11/17 10:31) Iv Access Insert/Monitor (12/11/17 10:31) Oximetry (12/11/17 10:31) Sodium Chloride 0.9% Flush (Ns Flush) (12/11/17 10:45) Labs Laboratory Tests Test 12/11/17 10:40 White Blood Count 3.8 TH/MM3 Red Blood Count 4.63 MIL/MM3 Hemoglobin 14.1 GM/DL Hematocrit 41.7 % Mean Corpuscular Volume 90.1 FL Mean Corpuscular Hemoglobin 30.4 PG Mean Corpuscular Hemoglobin Concent 33.8 % Red Cell Distribution Width 14.0 % Platelet Count 108 TH/MM3 Mean Platelet Volume 10.4 FL Neutrophils (%) (Auto) 73.1 % Lymphocytes (%) (Auto) 15.3 % Monocytes (%) (Auto) 9.9 % Eosinophils (%) (Auto) 1.2 % Basophils (%) (Auto) 0.5 % Neutrophils # (Auto) 2.8 TH/MM3 Lymphocytes # (Auto) 0.6 TH/MM3 Monocytes # (Auto) 0.4 TH/MM3 Eosinophils # (Auto) 0.0 TH/MM3 Basophils # (Auto) 0.0 TH/MM3 CBC Comment DIFF FINAL Differential Comment Blood Urea Nitrogen 18 MG/DL Creatinine 0.91 MG/DL Random Glucose 95 MG/DL Calcium Level 8.1 MG/DL Sodium Level 139 MEQ/L Potassium Level 4.2 MEQ/L Chloride Level 107 MEQ/L Carbon Dioxide Level 24.0 MEQ/L Anion Gap 8 MEQ/L Estimat Glomerular Filtration Rate 84 ML/MIN Troponin I LESS THAN 0.02 NG/ML MDM Medical Decision Making Medical Screen Exam Complete: Yes Emergency Medical Condition: Yes Interpretation(s) EKG shows a sinus rhythm. Rate is 53. Differential Diagnosis My differential diagnosis of paresthesias includes but is not limited to anxiety , radiculopathy, peripheral neuropathy, peripheral vascular disease, compartment syndrome Narrative Course This patient presents for the evaluation of paresthesias. He has a normal neurological examination. Last Impressions Head CT 12/11/17 1031 Signed Impressions: Service Date/Time: Monday, December 11, 2017 11:43 - CONCLUSION: Stable negative exam. Peter Schultz MD CBC & BMP Diagram 12/11/17 10:40 Calcium Level 8.1 L trop < 0.02 The history, exam, diagnostic testing, and current condition do not suggest any significant pathology to warrant further testing, continued ED treatment, admission, or surgical evaluation at this point. No EMC was found. The patient 's condition is stable and appropriate for discharge. Diagnosis Primary Impression: Paresthesia Patient Instructions: General Instructions, Paresthesia (ED) Disposition: 01 DISCHARGE HOME Condition: Stable Lilo Lara MD Dec 11, 2017 12:31
[2017-12-11 13:30] VITALS: BP 120/75
--- NOTE | 2017-12-11 14:52 | EKG ---
Date Performed: 12/11/2017 Time Performed: 10:06:43 PTAGE: 62 years EKG: SINUS BRADYCARDIA BORDERLINE ECG Since the PREVIOUS TRACING , no significant change noted PREVIOUS TRACIN08/03/2017 20.45 DOCTOR: Thomas Dowd Interpretating Date/Time 12/11/2017 14:51:59
== END 2017-12-11 13:36 | disposition home or self-care (01) ==
LOC: NEPC 09:39
DX: R20.2 Paresthesia of skin (principal); R94.31 Abnormal electrocardiogram [ECG] [EKG]; I48.91 Unspecified atrial fibrillation; K21.9 Gastro-esophageal reflux disease without esophagitis; I25.2 Old myocardial infarction; Z85.828 Personal history of other malignant neoplasm of skin
CPT/HCPCS: 70450; 80048; 84484; 85025; 93005

== ENCOUNTER 2018-07-05 09:21 | Inpatient (IN) ==
[2018-07-05] MEDS ORDERED: dilTIAZem Inj 125 MG in Sodium Chlor 0.9% Inj 100 ML IV.CONT PRN (10:22)
[2018-07-05] MEDS ORDERED: Sod Chloride 0.9% Inj 1,000 ML IV.CONT SCH (10:30)
[2018-07-05 10:50] LABS: Baso % (Auto) 0.3 % (0.0-2.0); Eos # (Auto) 0.1 th/mm3 (0.0-0.4); Eos % (Auto) 2.1 % (0.0-4.0); Hematocrit 44.4 % (39.0-51.0); Hemoglobin 15.5 gm/dL (13.0-17.0); Lymph # (Auto) 1.1 th/mm3 (1.0-4.8); Lymph % (Auto) 19.2 % (9.0-44.0); Mean Corpuscular HGB Conc 34.9 % (32.0-36.0); Mean Corpuscular Hemoglobin 31.3 pg (27.0-34.0); Mean Corpuscular Volume 89.7 fL (80.0-100.0); Mean Platelet Volume 11.6 fL (7.0-11.0); Mono # (Auto) 0.6 th/mm3 (0.0-0.9); Neut # (Auto) 3.7 th/mm3 (1.8-7.7); Neut % (Auto) 67.4 % (16.0-70.0); Platelet Count 100 th/mm3 (150-450); Red Blood Count 4.95 mil/mm3 (4.50-5.90); Red Cell Distribution Width 14.3 % (11.6-17.2); White Blood Count 5.5 th/mm3 (4.0-11.0)
--- NOTE | 2018-07-05 10:56 | ED ---
HPI General Chief Complaint: Chest Pain Stated Complaint: Dizziness Complaint Time Seen by Provider: 07/05/18 10:21 Source: patient Mode of arrival: ambulatory Limitations: no limitations History of Present Illness HPI narrative: 63-year-old male complains of heart racing. Patient has history of atrial fibrillation status post cardioversion and ablation procedure. Patient has been seen by cardiology Dr. Ochoa. Patient is on metoprolol 50 mg twice a day. Patient states that he has intermittent heart racing recently despite the medication. Patient states that the heart racing usually lasted several hours and resolved completely. Patient states that the heart racing usually associate with dyspepsia. Patient denies any chest pain or shortness of breath. Related Data Home Medications Medication Instructions Recorded Confirmed apixaban [Eliquis] 5 mg PO BID 06/06/18 07/05/18 omeprazole 20 mg PO DAILY 06/06/18 07/05/18 azelastine 1 spray INTRANASAL BID 07/05/18 07/05/18 bromfenac [BromSite] 1 drp OPHTHALMIC (EYE) BID 07/05/18 07/05/18 polymyxin B sulf-trimethoprim 1 drp RIGHT EYE QID 07/05/18 07/05/18 [Polytrim] prednisolone acetate 1 drp RIGHT EYE QID 07/05/18 07/05/18 Previous Rx's Medication Instructions Recorded dronedarone [Multaq] 400 mg PO BID 30 Days #60 tab 07/06/18 Allergies Allergy/AdvReac Type Severity Reaction Status Date / Time levofloxacin Allergy Severe TENDON Verified 07/04/18 07:39 DAMAGE shellfish derived Allergy Severe Anaphylaxis Verified 07/04/18 07:40 iodine Allergy Unknown Anaphylaxis Verified 07/04/18 07:39 Review of Systems ROS: all other systems reviewed are negative COUNTS INCLUDE 234 BEDS AT THE [facility] Medical History Medical History Acid reflux (Acute) Atrial fibrillation (Acute) Diverticulitis (Acute) Surgical History Surgical History History of aortoiliofemoral vascular bypass (Acute) History of cardiac radiofrequency ablation (Acute) History of discectomy (Acute) History of phacoemulsification of cataract of right eye with intraocular lens implantation (Acute) History of radiofrequency ablation (RFA) procedure for cardiac arrhythmia (Acute ) Social History Social History Substance History: No History of Abuse Second Hand Smoke Exposure: No Smoking Status: Former smoker Tobacco Type: Cigarettes How Often Do You Have a Drink Containing Alcohol: Never Recent Travel in [facility] within the Last 8 Weeks: No Recent Out of Country Travel within the Last 8 Weeks: No Immunization History Tetanus Immunization: <5 Years Exam Narrative Exam Narrative: GENERAL: Well-nourished, well-developed patient. SKIN: Focused skin assessment warm/dry. HEAD: Normocephalic. EYES: No scleral icterus. No injection or drainage. NECK: Supple, trachea midline. No JVD or lymphadenopathy. CARDIOVASCULAR: Irregularly irregular rate and rhythm without murmurs, gallops, or rubs. RESPIRATORY: Breath sounds equal bilaterally. No accessory muscle use. GASTROINTESTINAL: Abdomen soft, non-tender, nondistended. MUSCULOSKELETAL: No cyanosis, or edema. BACK: Nontender without obvious deformity. No CVA tenderness. Course Initial Documented Vital Signs Temperature 97.8 F 07/05/18 09:27 Pulse Rate 74 07/05/18 09:27 Respiratory Rate 15 07/05/18 09:27 Blood Pressure 140/102 H 07/05/18 09:27 Pulse Oximetry 100 07/05/18 09:27 Last Documented Vital Signs Temperature 97.4 F L 07/06/18 07:43 Pulse Rate 50 L 07/06/18 10:00 Respiratory Rate 18 07/06/18 07:43 Blood Pressure 138/83 07/06/18 07:43 Pulse Oximetry 98 07/06/18 03:00 Medical Decision Making [facility] Narrative Medical decision making narrative: 63-year-old male with atrial fibrillation and RVR. Cardizem bolus and drip started. Normal saline solution 100 cc an hour. Spoke with Dr. Ochoa. Advise admission and possible cardioversion in a.m. Medical Screen Exam Complete: Yes Emergency Medical Condition: Yes Lab Data Lab results reviewed: Yes I reviewed the patient's lab results. Result diagrams: 07/05/18 10:26 07/05/18 10:26 Lab Results 07/05/18 07/05/18 07/05/18 Range/Units 10:26 10:26 10:26 WBC 5.5 (4.0-11.0) th/mm3 RBC 4.95 (4.50-5.90) mil/mm3 Hgb 15.5 (13.0-17.0) gm/dL Hct 44.4 (39.0-51.0) % MCV 89.7 (80.0-100.0) fL MCH 31.3 (27.0-34.0) pg MCHC 34.9 (32.0-36.0) % RDW 14.3 (11.6-17.2) % Plt Count 100 L (150-450) th/mm3 MPV 11.6 H (7.0-11.0) fL Neut % (Auto) 67.4 (16.0-70.0) % Lymph % (Auto) 19.2 (9.0-44.0) % [place] % (Auto) 11.0 H (0.0-8.0) % Eos % (Auto) 2.1 (0.0-4.0) % Baso % (Auto) 0.3 (0.0-2.0) % Neut # (Auto) 3.7 (1.8-7.7) th/mm3 Lymph # (Auto) 1.1 (1.0-4.8) th/mm3 [place] # (Auto) 0.6 (0.0-0.9) th/mm3 Eos # (Auto) 0.1 (0.0-0.4) th/mm3 Baso # (Auto) 0.0 (0.0-0.2) th/mm3 WBC Differential . Differential Comment Auto diff final PT 10.9 (9.8-11.6) sec INR 1.1 Ratio APTT 30.0 (24.3-30.1) sec Sodium 143 (136-145) meq/L Potassium 3.8 (3.5-5.1) meq/L Chloride 108 H (98-107) meq/L Carbon Dioxide 25.9 (21.0-32.0) meq/L Anion Gap 9 (5-15) meq/L BUN 17 (7-18) mg/dL Creatinine 1.13 (0.60-1.30) mg/dL Estimated GFR 65 L (>89) mL/min Random Glucose 101 (74-106) mg/dL Calcium 8.1 L (8.5-10.1) mg/dL Total Bilirubin 0.4 (0.2-1.0) mg/dL AST 16 (15-37) U/L ALT 33 (12-78) U/L Alkaline Phosphatase 63 (45-117) U/L Total Creatine Kinase 107 (39-308) U/L CK-MB (CK-2) 2.8 (0.5-3.6) ng/mL Troponin I Less than 0.02 L (0.02-0.05) ng/mL B-Natriuretic Peptide (0-100) pg/mL Total Protein 6.7 (6.4-8.2) g/dL Albumin 3.5 (3.4-5.0) g/dL TSH (0.358-3.740) uIU/mL 07/05/18 07/05/18 Range/Units 10:26 10:26 WBC (4.0-11.0) th/mm3 RBC (4.50-5.90) mil/mm3 Hgb (13.0-17.0) gm/dL Hct (39.0-51.0) % MCV (80.0-100.0) fL MCH (27.0-34.0) pg MCHC (32.0-36.0) % RDW (11.6-17.2) % Plt Count (150-450) th/mm3 MPV (7.0-11.0) fL Neut % (Auto) (16.0-70.0) % Lymph % (Auto) (9.0-44.0) % [place] % (Auto) (0.0-8.0) % Eos % (Auto) (0.0-4.0) % Baso % (Auto) (0.0-2.0) % Neut # (Auto) (1.8-7.7) th/mm3 Lymph # (Auto) (1.0-4.8) th/mm3 [place] # (Auto) (0.0-0.9) th/mm3 Eos # (Auto) (0.0-0.4) th/mm3 Baso # (Auto) (0.0-0.2) th/mm3 WBC Differential Differential Comment PT (9.8-11.6) sec INR Ratio APTT (24.3-30.1) sec Sodium (136-145) meq/L Potassium (3.5-5.1) meq/L Chloride (98-107) meq/L Carbon Dioxide (21.0-32.0) meq/L Anion Gap (5-15) meq/L BUN (7-18) mg/dL Creatinine (0.60-1.30) mg/dL Estimated GFR (>89) mL/min Random Glucose (74-106) mg/dL Calcium (8.5-10.1) mg/dL Total Bilirubin (0.2-1.0) mg/dL AST (15-37) U/L ALT (12-78) U/L Alkaline Phosphatase (45-117) U/L Total Creatine Kinase (39-308) U/L CK-MB (CK-2) (0.5-3.6) ng/mL Troponin I (0.02-0.05) ng/mL B-Natriuretic Peptide 337 H (0-100) pg/mL Total Protein (6.4-8.2) g/dL Albumin (3.4-5.0) g/dL TSH 2.380 (0.358-3.740) uIU/mL Imaging Data Attestation: I personally reviewed and interpreted this imaging study as follows : Radiologist's impression: Chest X-Ray 07/05/18 10:24 CONCLUSION: No acute disease Discharge Plan Discharge Disposition Patient Disposition: 01 Discharge Home Discharge Condition Condition: Good Discharge Order Discharge Orders: Discharge Order (Routine); Ordered 07/06/18 Ordered By: Clay Kaplan Discharge Details Anticipated Discharge Date: 07/06/18 Physicians Team ED Provider: Adam Velasco Primary Care Provider: Mary Ellen Majano Attending Provider: Clay Kaplan Other Providers: Itzel Ochoa ; Murray Gao Status ED Status: Left Department Discharge Information Discharge Date/Time: 07/05/18 16:28
[2018-07-05 11:04] LABS: Albumin 3.5 g/dL (3.4-5.0); Anion Gap 9 meq/L (5-15); Blood Urea Nitrogen 17 mg/dL (7-18); Calcium 8.1 mg/dL (8.5-10.1); Carbon Dioxide 25.9 meq/L (21.0-32.0); Chloride 108 meq/L (98-107); Glomerular Filtration Rate 65 mL/min (>89); Glucose,Random 101 mg/dL (74-106); Potassium 3.8 meq/L (3.5-5.1); Sodium 143 meq/L (136-145)
[2018-07-05 11:05] LABS: Aspartate Aminotransferase 16 U/L (15-37)
--- NOTE | 2018-07-05 11:06 | XR ---
EXAM DATE: 07/05/2018 10:24 AM EDT AGE/SEX: 63 years / Male INDICATIONS: Palpitations and vertigo today CLINICAL DATA: This is the patient's initial encounter. Patient reports that signs and symptoms have been present for 1 day and indicates a pain score of 0/10. MEDICAL/SURGICAL HISTORY: . irregular heart beat . cardiac ablation COMPARISON: [facility] [place], CHEST SINGLE AP, 08/03/2017. . FINDINGS: A single AP view of the chest demonstrates the lungs to be symmetrically aerated without evidence of mass, infiltrate or effusion. The cardiomediastinal contours are unremarkable. Osseous structures a re intact. CONCLUSION: No acute disease Electronically signed by: Mele Hurst MD 07/05/2018 11:05 AM EDT
[2018-07-05 11:09] LABS: Alanine Aminotransferase 33 U/L (12-78); Alkaline Phosphatase 63 U/L (45-117); Creatine Kinase 107 U/L (39-308); Total Protein 6.7 g/dL (6.4-8.2)
[2018-07-05 11:19] LABS: INR 1.1 Ratio; Prothrombin Time 10.9 sec (9.8-11.6)
[2018-07-05 11:24] LABS: Creatine Kinase MB 2.8 ng/mL (0.5-3.6)
[2018-07-05] MEDS ORDERED: Bisacodyl 10 MG Supp RECTAL PRN (12:39)
--- NOTE | 2018-07-05 15:21 | P.CONCA ---
History of Present Illness Service: Cardiology Consult date: 07/05/18 Requesting Physician: Clay Kaplan Reason for Consult: Atrial fibrillation with rapid ventricular response Primary Care Provider: Mary Ellen Majano MD History of Present Illness: This is a very pleasant 63-year-old male known to Dr. Ochoa with a history of atrial fibrillation, hypertension, syncope, gastroesophageal reflux disease, diverticulosis, Soto's esophagus, hyperlipidemia and peripheral vascular disease. He presented to the emergency department today with complaints of palpitation and rapid heart rate. He stated that the rapid heart rate started around 430 this morning which woke him up. He denied any other symptoms during this episode. He states that these episodes usually last anywhere from 10-12 hours and then his heart slows down on its own. He recently had eye surgery yesterday and is requesting to be placed back on his home eyedrops per the sld teacher. Currently he is in atrial fibrillation with rapid ventricular response is in the 140s, on a Cardizem drip. He denies any chest pain, pressure, dizziness, edema or shortness of breath at this time. Review of Systems All other systems reviewed negative except as stated in HPI PMFSH - History History Provided By: Patient - Medical History Medical History: Medical History (Last Reviewed 07/05/18 @ 10:53 by Adam Velasco MD) Acid reflux Atrial fibrillation Diverticulitis - Surgical History Surgical History: Surgical History (Last Reviewed 07/05/18 @ 10:53 by Adam Velasco MD) History of aortoiliofemoral vascular bypass History of cardiac radiofrequency ablation History of discectomy History of phacoemulsification of cataract of right eye with intraocular lens implantation History of radiofrequency ablation (RFA) procedure for cardiac arrhythmia - Tobacco History Second Hand Smoke Exposure: No Smoking Status: Former smoker Tobacco Type: Cigarettes - Alcohol History How Often Do You Have a Drink Containing Alcohol: Never - Substance Use History Substance History: No History of Abuse - Travel History Recent Travel in the [place] Within the Last 8 Weeks: No Recent Travel Out of the Country Within the Last 8 Weeks: No - Immunization History Tetanus Immunization: <5 Years Medications and Allergies Allergies Allergy/AdvReac Type Severity Reaction Status Date / Time levofloxacin Allergy Severe TENDON Verified 07/04/18 07:39 DAMAGE shellfish derived Allergy Severe Anaphylaxis Verified 07/04/18 07:40 iodine Allergy Unknown Anaphylaxis Verified 07/04/18 07:39 Home Medications Medication Instructions Recorded Confirmed Type apixaban [Eliquis] 5 mg PO BID 06/06/18 07/05/18 History cetirizine [Zyrtec] 10 mg PO DAILY 06/06/18 07/05/18 History metoprolol tartrate 50 mg PO BID 06/06/18 07/05/18 History omeprazole 20 mg PO DAILY 06/06/18 07/05/18 History azelastine 1 spray INTRANASAL BID 07/05/18 07/05/18 History bromfenac [BromSite] 1 drp OPHTHALMIC (EYE) BID 07/05/18 07/05/18 History polymyxin B sulf-trimethoprim 1 drp RIGHT EYE QID 07/05/18 07/05/18 History [Polytrim] prednisolone acetate 1 drp RIGHT EYE QID 07/05/18 07/05/18 History Active Medications: Active Medications Al Hydroxide/Mg Hydroxide (Milk Of Magnesia Liq) 30 ml PO Q12H PRN PRN Reason: Mild Constipation Bisacodyl (Dulcolax Supp) 10 mg RECTAL DAILY PRN PRN Reason: SEVERE CONSITIPATION Dronedarone (Multaq) [address] [facility] Diltiazem HCl 125 mg/ Sodium (Chloride) 125 mls @ 5 mls/hr IV.CONT TITRATE PRN ; Protocol PRN Reason: Per Protocol Last Titration: 07/05/18 14:39 Dose: 0 mg/hr, 0 mls/hr Sodium Chloride (Ns Inj) 1,000 mls @ 100 mls/hr IV.CONT .Q10H [facility] Last Admin: 07/05/18 10:33 Dose: 100 mls/hr Lactulose (Lactulose Liq) 30 ml PO DAILY PRN PRN Reason: SEVERE CONSITIPATION Pantoprazole Sodium (Protonix) [address] [facility] Pt Own Med: (Azelastine 1 [place]) [address] [facility] Sennosides (Senokot) 17.2 mg PO Q12H PRN PRN Reason: Moderate Constipation Exam Vital signs: Vital Signs 07/05/18 09:27 07/05/18 09:30 07/05/18 10:03 Temperature 97.8 F Pulse Rate 74 145 H 170 H Respiratory Rate 15 14 Blood Pressure 140/102 H 131/96 H Pulse Oximetry 100 97 07/05/18 11:20 07/05/18 11:30 07/05/18 12:00 Temperature Pulse Rate 130 H 134 H 114 H Respiratory Rate 16 15 13 Blood Pressure 126/80 132/83 91/72 L Pulse Oximetry 96 98 07/05/18 12:30 07/05/18 13:00 07/05/18 14:38 Temperature Pulse Rate 118 H 146 H 43 L Respiratory Rate 18 24 12 Blood Pressure 110/81 124/92 H 122/68 Pulse Oximetry 96 Intake & Output 07/04/18 07/05/18 07/05/18 18:59 06:59 18:59 Weight 84.822 kg Narrative: GENERAL: This is a well-nourished, well-developed patient, in no apparent distress. Patient speaks in clear complete sentences. Patient is pleasant. HEENT: Head is atraumatic and normocephalic. Neck is supple without lymphadenopathy and trachea is midline. No JVD or carotid bruits. CARDIOVASCULAR: Atrial fibrillation with RVR. Without murmurs, gallops, or rubs. RESPIRATORY: Clear to auscultation. Breath sounds equal bilaterally. No wheezes , rales, or rhonchi. Chest wall is nontender. No use of accessory muscles. GASTROINTESTINAL: Abdomen is nontender, nondistended. Abdomen soft. No obvious pulsatile mass or bruit. No CVA tenderness. Strong femoral pulses bilaterally. Normal bowel sounds in all quadrants. MUSCULOSKELETAL: Patient is moving upper and lower extremities freely. No calf tenderness or edema, no Homans sign. Strong pulses in upper and lower extremities. NEUROLOGICAL: Patient is alert and oriented. Cranial nerves 2-12 are grossly intact. No focal deficits and speech is clear. SKIN: No rash and turgor is normal. Results 07/05/18 10:26 07/05/18 10: Cardiac Enzymes 07/05/18 07/05/18 Range/Units 10: 10: AST 16 (15-37) U/L CK-MB (CK-2) 2.8 (0.5-3.6) ng/mL Troponin I Less than 0.02 L (0.02-0.05) ng/mL B-Natriuretic Peptide 337 H (0-100) pg/mL Coagulation 07/05/18 07/05/18 Range/Units 10: 10:26 PT 10.9 (9.8-11.6) sec APTT 30.0 (24.3-30.1) sec B-Natriuretic Peptide 337 H (0-100) pg/mL CBC 07/05/18 Range/Units 10:26 WBC 5.5 (4.0-11.0) th/mm3 RBC 4.95 (4.50-5.90) mil/mm3 Hgb 15.5 (13.0-17.0) gm/dL Hct 44.4 (39.0-51.0) % Plt Count 100 L (150-450) th/mm3 Neut # (Auto) 3.7 (1.8-7.7) th/mm3 Lymph # (Auto) 1.1 (1.0-4.8) th/mm3 [place] # (Auto) 0.6 (0.0-0.9) th/mm3 Eos # (Auto) 0.1 (0.0-0.4) th/mm3 Baso # (Auto) 0.0 (0.0-0.2) th/mm3 Comprehensive Metabolic Panel 07/05/18 Range/Units 10:26 Sodium 143 (136-145) meq/L Potassium 3.8 (3.5-5.1) meq/L Chloride 108 H (98-107) meq/L Carbon Dioxide 25.9 (21.0-32.0) meq/L BUN 17 (7-18) mg/dL Creatinine 1.13 (0.60-1.30) mg/dL Calcium 8.1 L (8.5-10.1) mg/dL AST 16 (15-37) U/L ALT 33 (12-78) U/L Alkaline Phosphatase 63 (45-117) U/L Total Protein 6.7 (6.4-8.2) g/dL Albumin 3.5 (3.4-5.0) g/dL Intake and Output 07/05/18 07/05/18 07/05/18 06:59 14:59 22:59 Other: Weight 84.822 kg Patient Weight 07/06/18 06:59 Weight 84.822 kg - Imaging and Cardiology Imaging: Impressions Chest X-Ray 07/05/18 10:24 CONCLUSION: No acute disease Assessment and Plan - Assessment (1) Atrial fibrillation with RVR Code(s): I48.91 - Unspecified atrial fibrillation Status: Acute - Plan Patient was in atrial fib with rapid ventricular response on a Cardizem drip. Currently, patient is in sinus bradycardia and Cardizem drip is off. Previously, the patient refused Multaq but has reconsidered due to the arrhythmia. We will start Multaq 400 mg twice daily, first dose tonight. Will restart patient's metoprolol 50 mg twice daily, hold until patient's heart rate increases. If patient converts back into atrial fib, we will consider cardioversion. Recent study positive for sleep apnea. We will continue to monitor the patient during his hospitalization and follow- up with patient in our office post discharge. Patient seen and evaluated by Dr. Ochoa who participated in care, management and decision-making. - Attending Attestation Patient seen and examined. I reviewed and agree with the evaluation and plan as presented. He converted to SR. Start tx with Multaq. Decrease or stop metoprolol dose based on his HR. Home possibly tomorrow if stable.
--- NOTE | 2018-07-05 19:31 | ECG ---
Date Performed: 07/05/2018 Time Performed: 14:47:46 PTAGE: 63 years EKG: SINUS BRADYCARDIA NONSPECIFIC ST & T-WAVE ABNORMALITY BORDERLINE ECG No significant change from prior electrocardiogram. PREVIOUS TRACING : 12/11/2017 10.06 DOCTOR: Greg Trujillo Interpretating Date/Time 07/05/2018 19:30:41
[2018-07-05] MEDS ORDERED: AZELASTINE NASAL SCH (21:00)
--- NOTE | 2018-07-05 21:59 | P.HPIM ---
History of Present Illness Primary Care Physician: Mary Ellen Majano MD History of Present Illness: 63-year-old male with a history of atrial fibrillation, hypertension, GERD who presents with onset of palpitations, rapid heart rate, feeling of abdominal fullness beginning around 4:30 this morning. Patient denies any fevers, chills , or shortness of breath. Inpatient Certification: I certify that the inpatient services were ordered in accordance with Medicare regulations governing the order. This includes certification that hospital inpatient services are reasonable and necessary and in the case of services not specified as inpatient-only under 42 CFR 419.22(n), that they are appropriately provided as inpatient services in accordance to with the 2-midnight benchmark under 43 CFR 412.3(e) Estimated Total Length of Stay (Days): 2 Plans for Post Hospital Care: Home Review of Systems All other systems reviewed negative except as stated in HPI [facility] - History History Provided By: Patient - Medical History Medical History: Medical History (Last Reviewed 07/05/18 @ 21:57 by Clay Kaplan MD) Acid reflux Atrial fibrillation Diverticulitis - Surgical History Surgical History: Surgical History (Last Reviewed 07/05/18 @ 21:57 by Clay Kaplan MD) History of aortoiliofemoral vascular bypass History of cardiac radiofrequency ablation History of discectomy History of phacoemulsification of cataract of right eye with intraocular lens implantation History of radiofrequency ablation (RFA) procedure for cardiac arrhythmia - Family History Family History: Family History (Last Reviewed 07/05/18 @ 21:57 by Clay Kaplan MD) Father Lung cancer Mother Lung cancer - Social History I have reviewed the patient's Social History: Yes - Tobacco History Second Hand Smoke Exposure: No Smoking Status: Former smoker Tobacco Type: Cigarettes - Alcohol History How Often Do You Have a Drink Containing Alcohol: Never - Substance Use History Substance History: No History of Abuse - Travel History Recent Travel in the [place] Within the Last 8 Weeks: No Recent Travel Out of the Country Within the Last 8 Weeks: No - Immunization History Tetanus Immunization: <5 Years Medications and Allergies Active Medications: Active Medications Al Hydroxide/Mg Hydroxide (Milk Of Magnand[place] Liq) 30 ml PO Q12H PRN PRN Reason: Mild Constipation Bisacodyl (Dulcolax Supp) 10 mg RECTAL DAILY PRN PRN Reason: SEVERE CONSITIPATION Dronedarone (Multaq) 400 mg PO BID [facility] Last Admin: 07/05/18 20:41 Dose: 400 mg Lactulose (Lactulose Liq) 30 ml PO DAILY PRN PRN Reason: SEVERE CONSITIPATION Pantoprazole Sodium (Protonix) 20 mg PO DAILY [facility] Pt Own Med: (Azelastine 1 [place]) 0 each NASAL BID [facility] Sennosides (Senokot) 17.2 mg PO Q12H PRN PRN Reason: Moderate Constipation Allergies Allergy/AdvReac Type Severity Reaction Status Date / Time levofloxacin Allergy Severe TENDON Verified 07/04/18 07:39 DAMAGE shellfish derived Allergy Severe Anaphylaxis Verified 07/04/18 07:40 iodine Allergy Unknown Anaphylaxis Verified 07/04/18 07:39 Home Medications Medication Instructions Recorded Confirmed Type apixaban [Eliquis] 5 mg PO BID 06/06/18 07/05/18 History cetirizine [Zyrtec] 10 mg PO DAILY 06/06/18 07/05/18 History metoprolol tartrate 50 mg PO BID 06/06/18 07/05/18 History omeprazole 20 mg PO DAILY 06/06/18 07/05/18 History azelastine 1 spray INTRANASAL BID 07/05/18 07/05/18 History bromfenac [BromSite] 1 drp OPHTHALMIC (EYE) BID 07/05/18 07/05/18 History polymyxin B sulf-trimethoprim 1 drp RIGHT EYE QID 07/05/18 07/05/18 History [Polytrim] prednisolone acetate 1 drp RIGHT EYE QID 07/05/18 07/05/18 History Exam Vital signs: Vital Signs 07/05/18 09:27 07/05/18 09:30 07/05/18 10:03 Temperature 97.8 F Pulse Rate 74 145 H 170 H Respiratory Rate 15 14 Blood Pressure 140/102 H 131/96 H Pulse Oximetry 100 97 07/05/18 11:20 07/05/18 11:30 07/05/18 12:00 Temperature Pulse Rate 130 H 134 H 114 H Respiratory Rate 16 15 13 Blood Pressure 126/80 132/83 91/72 L Pulse Oximetry 96 98 07/05/18 12:30 07/05/18 13:00 07/05/18 14:38 Temperature Pulse Rate 118 H 146 H 43 L Respiratory Rate 18 24 12 Blood Pressure 110/81 124/92 H 122/68 Pulse Oximetry 96 07/05/18 16:02 07/05/18 17:00 07/05/18 18:00 Temperature Pulse Rate 47 L 46 L 51 L Respiratory Rate 15 Blood Pressure 106/66 Pulse Oximetry 97 Intake & Output 07/05/18 07/05/18 07/06/18 06:59 18:59 06:59 Intake Total 250 / 250 Balance 250 / 250 Weight 84.822 kg Intake: Oral 250 / 250 Narrative: GENERAL: patient sitting up in bed. Appears comfortable. Alert and oriented 3. SKIN: Warm and dry. HEAD: Atraumatic. Normocephalic. EYES: Pupils equal and round. No scleral icterus. No injection or drainage. ENT: No nasal bleeding or discharge. Mucous membranes pink and moist. NECK: Trachea midline. No JVD. CARDIOVASCULAR: tachycardic. Irregularly irregular. Rhythm. No murmurs, rubs , gallops, clicks. RESPIRATORY: No accessory muscle use. Clear to auscultation. Breath sounds equal bilaterally. GASTROINTESTINAL: Abdomen soft, non-tender, nondistended. Hepatic and splenic margins not palpable. MUSCULOSKELETAL: Extremities without clubbing, cyanosis, or edema. No obvious deformities. NEUROLOGICAL: Awake and alert. No obvious cranial nerve deficits. Motor grossly within normal limits. Five out of 5 muscle strength in the arms and legs. Normal speech. PSYCHIATRIC: Appropriate mood and affect; insight and judgment normal. Results - Labs CBC & Chem 7: 07/05/18 10:26 07/05/18 10:26 Labs: Short CBC 07/05/18 Range/Units 10:26 WBC 5.5 (4.0-11.0) th/mm3 Hgb 15.5 (13.0-17.0) gm/dL Hct 44.4 (39.0-51.0) % Plt Count 100 L (150-450) th/mm3 BMP 07/05/18 10:26 Sodium 143 Potassium 3.8 Chloride 108 H Carbon Dioxide 25.9 BUN 17 Creatinine 1.13 Calcium 8.1 L Cardiac Enzymes 07/05/18 Range/Units 10:26 Total Creatine Kinase 107 (39-308) U/L CK-MB (CK-2) 2.8 (0.5-3.6) ng/mL Troponin I Less than 0.02 L (0.02-0.05) ng/mL Liver Function 07/05/18 Range/Units 10:26 Total Bilirubin 0.4 (0.2-1.0) mg/dL AST 16 (15-37) U/L ALT 33 (12-78) U/L Alkaline Phosphatase 63 (45-117) U/L Albumin 3.5 (3.4-5.0) g/dL - Imaging Impressions Chest X-Ray 07/05/18 10:24 CONCLUSION: No acute disease Caprini VTE Risk Assessment Caprini VTE Risk Assessment: Moderate/High Risk (score >= 2) Caprini Risk Assessment Model: Point Value = 1 Point Value = 2 Point Value = 3 Point Value = 5 Age 41-60 Minor surgery BMI > 25 kg/m2 Swollen legs Varicose veins or History of unexplained or recurrent spontaneous Oral contraceptives or hormone replacement Sepsis (< 1 month) Serious lung disease, including pneumonia (< 1 month) Abnormal pulmonary function Acute myocardial infarction Congestive heart failure (< 1 month) History of inflammatory bowel disease Medical patient at bed rest Age 61-74 Arthroscopic surgery Major open surgery (> 45 min) Laparoscopic surgery (> 45 min) Malignancy Confined to bed (> 72 hours) Immobilizing plaster cast Central venous access Age >= 75 History of VTE Family history of VTE Factor V Leiden Prothrombin [id number] Lupus anticoagulant Anticardiolipin antibodies Elevated serum homocysteine Heparin-induced thrombocytopenia Other congenital or acquired thrombophilia Stroke (< 1 month) Elective arthroplasty Hip, pelvis, or leg fracture Acute spinal cord injury (< 1 month) Prophylaxis Regimen: Total Risk Factor Score Risk Level Prophylaxis Regimen 0-1 Low Early ambulation 2 Moderate Order ONE of the following: *Sequential Compression Device (SCD) *Heparin 5000 units SQ BID 3-4 Higher Order ONE of the following medications: *Heparin 5000 units SQ TID *Enoxaparin/Lovenox 40 mg SQ daily (WT < 150 kg, CrCl > 30 mL/min) *Enoxaparin/Lovenox 30 mg SQ daily (WT < 150 kg, CrCl > 10-29 mL/min) *Enoxaparin/Lovenox 30 mg SQ BID (WT < 150 kg, CrCl > 30 mL/min) AND/OR *Sequential Compression Device (SCD) 5 or more Highest Order ONE of the following medications: *Heparin 5000 units SQ TID (Preferred with Epidurals) *Enoxaparin/Lovenox 40 mg SQ daily (WT < 150 kg, CrCl > 30 mL/min) *Enoxaparin/Lovenox 30 mg SQ daily (WT < 150 kg, CrCl > 10-29 mL/min) *Enoxaparin/Lovenox 30 mg SQ BID (WT < 150 kg, CrCl > 30 mL/min) AND *Sequential Compression Device (SCD) Assessment and Plan - Plan /Atrial fibrillation with RVR. Patient initially managed with diltiazem, converted to sinus bradycardia, however subsequently back in A. fib RVR = Management as per cardiology. Appreciate assistance. Patient will be monitored on CIC //GERD. History of Soto's esophagus. Continue home medication. Recent eye surgery. Continue eyedrops Chronic allergic rhinitis. Continue nasal spray Discussed Condition With: patient, nurse, ED physician.
[2018-07-06] MEDS ORDERED: Pantoprazole Sodium 20 MG DR Tablet PO SCH (09:00)
[2018-07-06] MEDS ORDERED: Polymyxin/Trimethop Opth Drops 10 ML Bottle RIGHT EYE SCH (09:00)
[2018-07-06] MEDS ORDERED: prednisoLONE Acetate 1% Opth Susp 5 ML Bottle RIGHT EYE SCH (09:00)
[2018-07-06] MEDS ORDERED: BROMFENAC 0.075% EACH EYE SCH (09:00)
--- NOTE | 2018-07-06 09:24 | P.PNCA ---
Subjective Interval history: Patient denies any CP, pressure, palpitations, dizziness, edema or SOB. Medications and Allergies Allergies Allergy/AdvReac Type Severity Reaction Status Date / Time levofloxacin Allergy Severe TENDON Verified 07/04/18 07:39 DAMAGE shellfish derived Allergy Severe Anaphylaxis Verified 07/04/18 07:40 iodine Allergy Unknown Anaphylaxis Verified 07/04/18 07:39 Home Medications Medication Instructions Recorded Confirmed Type apixaban [Eliquis] 5 mg PO BID 06/06/18 07/05/18 History omeprazole 20 mg PO DAILY 06/06/18 07/05/18 History azelastine 1 spray INTRANASAL BID 07/05/18 07/05/18 History bromfenac [BromSite] 1 drp OPHTHALMIC (EYE) BID 07/05/18 07/05/18 History polymyxin B sulf-trimethoprim 1 drp RIGHT EYE QID 07/05/18 07/05/18 History [Polytrim] prednisolone acetate 1 drp RIGHT EYE QID 07/05/18 07/05/18 History Active Medications: Active Medications Al Hydroxide/Mg Hydroxide (Milk Of Magnesia Liq) 30 ml PO Q12H PRN PRN Reason: Mild Constipation Apixaban (Eliquis) 5 mg PO BID [facility] Last Admin: 07/05/18 23:14 Dose: Not Given Bisacodyl (Dulcolax Supp) 10 mg RECTAL DAILY PRN PRN Reason: SEVERE CONSITIPATION Dronedarone (Multaq) 400 mg PO BID [facility] Last Admin: 07/05/18 20:41 Dose: 400 mg Lactulose (Lactulose Liq) 30 ml PO DAILY PRN PRN Reason: SEVERE CONSITIPATION Pantoprazole Sodium (Protonix) 20 mg PO DAILY [facility] Pt Own Med: (Azelastine 1 [place]) 0 each NASAL BID [facility] Pt:Bromfenac 0.075% 0 each EACH EYE BID [facility] Polymyxin/Trimethoprim Sulfate (Polytrim Opth Drops) 1 drop RIGHT EYE QID [facility] Prednisolone Acetate (Pred Forte 1% Opth Susp) 1 drop RIGHT EYE QID [facility] Sennosides (Senokot) 17.2 mg PO Q12H PRN PRN Reason: Moderate Constipation Physical Exam Vital signs: Vital Signs 07/05/18 09:27 07/05/18 09:30 07/05/18 10:03 Temperature 97.8 F Pulse Rate 74 145 H 170 H Respiratory Rate 15 14 Blood Pressure 140/102 H 131/96 H Pulse Oximetry 100 97 07/05/18 11:20 07/05/18 11:30 07/05/18 12:00 Temperature Pulse Rate 130 H 134 H 114 H Respiratory Rate 16 15 13 Blood Pressure 126/80 132/83 91/72 L Pulse Oximetry 96 98 07/05/18 12:30 07/05/18 13:00 07/05/18 14:38 Temperature Pulse Rate 118 H 146 H 43 L Respiratory Rate 18 24 12 Blood Pressure 110/81 124/92 H 122/68 Pulse Oximetry 96 07/05/18 16:02 07/05/18 17:00 07/05/18 18:00 Temperature Pulse Rate 47 L 46 L 51 L Respiratory Rate 15 Blood Pressure 106/66 Pulse Oximetry 97 07/05/18 19:00 07/05/18 19:10 07/05/18 20:00 Temperature 98.6 F Pulse Rate 160 H 60 48 L Respiratory Rate 16 Blood Pressure 119/73 Pulse Oximetry 98 07/05/18 21:00 07/05/18 22:00 07/05/18 23:00 Temperature 98.4 F Pulse Rate 48 L 59 L 42 L Respiratory Rate 16 Blood Pressure 124/70 Pulse Oximetry 100 07/06/18 00:00 07/06/18 01:00 07/06/18 02:00 Temperature Pulse Rate 44 L 45 L 41 L Respiratory Rate Blood Pressure Pulse Oximetry 07/06/18 03:00 07/06/18 04:00 07/06/18 05:00 Temperature 98.4 F Pulse Rate 43 L 44 L 43 L Respiratory Rate 14 Blood Pressure 112/79 Pulse Oximetry 98 07/06/18 06:00 07/06/18 07:00 07/06/18 07:43 Temperature 97.4 F L Pulse Rate 47 L 50 L 52 L Respiratory Rate 18 Blood Pressure 138/83 Pulse Oximetry 07/06/18 08:00 Temperature Pulse Rate 50 L Respiratory Rate Blood Pressure Pulse Oximetry Intake & Output 07/05/18 07/06/18 07/06/18 18:59 06:59 18:59 Intake Total 250 / 250 1245 / 1245 Output Total 700 / 700 Balance 250 / 250 545 / 545 Weight 84.822 kg 83.9 kg Intake: IV 1005 / 1005 NS Inj 1,000 ML @ 100 mls/hr IV 1000 / 1000 .CONT .Q10H [facility] Rx#:[id number] Cardizem Inj 125 MG In NS Inj 5 / 5 100 ML @ 5 MG/HR 5 mls/hr IV. CONT TITRATE PRN Rx#:[id number] Oral 250 / 250 240 / 240 Output: Urine 700 / 700 - Constitutional no acute distress - Routine HEENT Exam Head: Present: normocephalic Eye: Present: PERRL ENT: Present: mucous membranes moist - Routine Neck Exam Present: full ROM - Routine Respiratory Exam Present: CTA bilaterally - Routine Cardiovascular Exam Present: S1, S2, bradycardia. Absent: murmur, gallop - Routine Abdominal Exam Present: normoactive bowel sounds - Routine Extremities Exam Present: full ROM, pulses intact, normal capillary refill. Absent: cyanosis, clubbing, edema - Routine Skin Exam Present: intact - Routine Neurological Exam Present: oriented X3 - Detailed Neurological Exam: Coma Scale Eye Opening: Spontaneous Verbal Response: Oriented Motor Response: Obey commands [place] Coma Scale Total: 15 - Routine Psychiatric Exam Present: normal affect Results 07/05/18 10:26 07/05/18 10:26 Cardiac Enzymes 07/05/18 07/05/18 Range/Units 10: 10: AST 16 (15-37) U/L CK-MB (CK-2) 2.8 (0.5-3.6) ng/mL Troponin I Less than 0.02 L (0.02-0.05) ng/mL B-Natriuretic Peptide 337 H (0-100) pg/mL Coagulation 07/05/18 07/05/18 Range/Units 10:26 10:26 PT 10.9 (9.8-11.6) sec APTT 30.0 (24.3-30.1) sec B-Natriuretic Peptide 337 H (0-100) pg/mL CBC 07/05/18 Range/Units 10: WBC 5.5 (4.0-11.0) th/mm3 RBC 4.95 (4.50-5.90) mil/mm3 Hgb 15.5 (13.0-17.0) gm/dL Hct 44.4 (39.0-51.0) % Plt Count 100 L (150-450) th/mm3 Neut # (Auto) 3.7 (1.8-7.7) th/mm3 Lymph # (Auto) 1.1 (1.0-4.8) th/mm3 [place] # (Auto) 0.6 (0.0-0.9) th/mm3 Eos # (Auto) 0.1 (0.0-0.4) th/mm3 Baso # (Auto) 0.0 (0.0-0.2) th/mm3 Comprehensive Metabolic Panel 07/05/18 Range/Units 10:26 Sodium 143 (136-145) meq/L Potassium 3.8 (3.5-5.1) meq/L Chloride 108 H (98-107) meq/L Carbon Dioxide 25.9 (21.0-32.0) meq/L BUN 17 (7-18) mg/dL Creatinine 1.13 (0.60-1.30) mg/dL Calcium 8.1 L (8.5-10.1) mg/dL AST 16 (15-37) U/L ALT 33 (12-78) U/L Alkaline Phosphatase 63 (45-117) U/L Total Protein 6.7 (6.4-8.2) g/dL Albumin 3.5 (3.4-5.0) g/dL Intake and Output 07/05/18 07/06/18 07/06/18 22:59 06:59 14:59 Intake Total 255 / 255 1240 / 1240 Output Total 700 / 700 Balance 255 / 255 540 / 540 Intake: IV 5 / 5 1000 / 1000 NS Inj 1,000 ML @ 100 mls/hr IV 1000 / 1000 .CONT .Q10H [facility] Rx#:[id number] Cardizem Inj 125 MG In NS Inj 5 / 5 100 ML @ 5 MG/HR 5 mls/hr IV. CONT TITRATE PRN Rx#:[id number] Oral 250 / 250 240 / 240 Output: Urine 700 / 700 Other: Weight 83.9 kg - Imaging and Cardiology Imaging: Impressions Chest X-Ray 07/05/18 10:24 CONCLUSION: No acute disease Assessment and Plan - Assessment (1) Atrial fibrillation with RVR Code(s): I48.91 - Unspecified atrial fibrillation Status: Acute - Plan Patient started on Multaq 400mg BID yesterday. He is currently in SB on tele. Due to SB, we will not start Metoprolol at this time. Patient cleared for discharge on Multaq from a cardiac standpoint. Will schedule f/u in our office after discharge. Patient seen and evaluated by Dr. Ochoa who participated in care, management and decision-making. - Attending Attestation Patient seen and examined. I reviewed and agree with the evaluation and plan as presented. Back in SR. Continue Multaq. DC home. F/u in our office after discharge.
--- NOTE | 2018-07-06 09:30 | P.PNIM ---
Subjective Interval history: Patient says he is feeling well today. Denies any chest pain or shortness of breath. Denies any lightheadedness or dizziness. Physical Exam Vital signs: Vital Signs 07/05/18 09:27 07/05/18 09:30 07/05/18 10:03 Temperature 97.8 F Pulse Rate 74 145 H 170 H Respiratory Rate 15 14 Blood Pressure 140/102 H 131/96 H Pulse Oximetry 100 97 07/05/18 11:20 07/05/18 11:30 07/05/18 12:00 Temperature Pulse Rate 130 H 134 H 114 H Respiratory Rate 16 15 13 Blood Pressure 126/80 132/83 91/72 L Pulse Oximetry 96 98 07/05/18 12:30 07/05/18 13:00 07/05/18 14:38 Temperature Pulse Rate 118 H 146 H 43 L Respiratory Rate 18 24 12 Blood Pressure 110/81 124/92 H 122/68 Pulse Oximetry 96 07/05/18 16:02 07/05/18 17:00 07/05/18 18:00 Temperature Pulse Rate 47 L 46 L 51 L Respiratory Rate 15 Blood Pressure 106/66 Pulse Oximetry 97 07/05/18 19:00 07/05/18 19:10 07/05/18 20:00 Temperature 98.6 F Pulse Rate 160 H 60 48 L Respiratory Rate 16 Blood Pressure 119/73 Pulse Oximetry 98 07/05/18 21:00 07/05/18 22:00 07/05/18 23:00 Temperature 98.4 F Pulse Rate 48 L 59 L 42 L Respiratory Rate 16 Blood Pressure 124/70 Pulse Oximetry 100 07/06/18 00:00 07/06/18 01:00 07/06/18 02:00 Temperature Pulse Rate 44 L 45 L 41 L Respiratory Rate Blood Pressure Pulse Oximetry 07/06/18 03:00 07/06/18 04:00 07/06/18 05:00 Temperature 98.4 F Pulse Rate 43 L 44 L 43 L Respiratory Rate 14 Blood Pressure 112/79 Pulse Oximetry 98 07/06/18 06:00 07/06/18 07:00 07/06/18 07:43 Temperature 97.4 F L Pulse Rate 47 L 50 L 52 L Respiratory Rate 18 Blood Pressure 138/83 Pulse Oximetry 07/06/18 08:00 Temperature Pulse Rate 50 L Respiratory Rate Blood Pressure Pulse Oximetry Intake & Output 07/05/18 07/06/18 07/06/18 18:59 06:59 18:59 Intake Total 250 / 250 1245 / 1245 Output Total 700 / 700 Balance 250 / 250 545 / 545 Weight 84.822 kg 83.9 kg Intake: IV 1005 / 1005 NS Inj 1,000 ML @ 100 mls/hr IV 1000 / 1000 .CONT .Q10H [facility] Rx#:[id number] Cardizem Inj 125 MG In NS Inj 5 / 5 100 ML @ 5 MG/HR 5 mls/hr IV. CONT TITRATE PRN Rx#:[id number] Oral 250 / 250 240 / 240 Output: Urine 700 / 700 Narrative: GENERAL: Patient sitting up in chair. Appears comfortable. Alert and oriented x3. SKIN: Warm and dry. HEAD: Normocephalic. EYES: No scleral icterus. No injection or drainage. NECK: Supple, trachea midline. No JVD or lymphadenopathy. CARDIOVASCULAR: Regular rate and rhythm without murmurs, gallops, or rubs. RESPIRATORY: Breath sounds equal bilaterally. No accessory muscle use. GASTROINTESTINAL: Abdomen soft, non-tender, nondistended. MUSCULOSKELETAL: No cyanosis, or edema. BACK: Nontender without obvious deformity. No CVA tenderness. Results - Labs CBC & Chem 7: 07/05/18 10:26 07/05/18 10:26 Laboratory Results - last 24 hr 07/05/18 07/05/18 07/05/18 10:26 10:26 10:26 WBC 5.5 RBC 4.95 Hgb 15.5 Hct 44.4 MCV 89.7 MCH 31.3 MCHC 34.9 RDW 14.3 Plt Count 100 L MPV 11.6 H Neut % (Auto) 67.4 Lymph % (Auto) 19.2 [place] % (Auto) 11.0 H Eos % (Auto) 2.1 Baso % (Auto) 0.3 Neut # (Auto) 3.7 Lymph # (Auto) 1.1 [place] # (Auto) 0.6 Eos # (Auto) 0.1 Baso # (Auto) 0.0 WBC Differential . Differential Comment Auto diff final PT 10.9 INR 1.1 APTT 30.0 Sodium 143 Potassium 3.8 Chloride 108 H Carbon Dioxide 25.9 Anion Gap 9 BUN 17 Creatinine 1.13 Estimated GFR 65 L Random Glucose 101 Calcium 8.1 L Total Bilirubin 0.4 AST 16 ALT 33 Alkaline Phosphatase 63 Total Creatine Kinase 107 CK-MB (CK-2) 2.8 Troponin I Less than 0.02 L B-Natriuretic Peptide Total Protein 6.7 Albumin 3.5 TSH 07/05/18 07/05/18 10:26 10:26 WBC RBC Hgb Hct MCV MCH MCHC RDW Plt Count MPV Neut % (Auto) Lymph % (Auto) [place] % (Auto) Eos % (Auto) Baso % (Auto) Neut # (Auto) Lymph # (Auto) [place] # (Auto) Eos # (Auto) Baso # (Auto) WBC Differential Differential Comment PT INR APTT Sodium Potassium Chloride Carbon Dioxide Anion Gap BUN Creatinine Estimated GFR Random Glucose Calcium Total Bilirubin AST ALT Alkaline Phosphatase Total Creatine Kinase CK-MB (CK-2) Troponin I B-Natriuretic Peptide 337 H Total Protein Albumin TSH 2.380 - Imaging Impressions Chest X-Ray 07/05/18 10:24 CONCLUSION: No acute disease Assessment and Plan - Plan /Atrial fibrillation with RVR. Patient initially managed with diltiazem, converted to sinus bradycardia, however subsequently back in A. fib RVR = Management as per cardiology. Appreciate assistance. Patient will be monitored on CIC. = Discussed with cardiology. Patient cleared for discharge on Multaq follow-up with primary care. //GERD. History of Soto's esophagus. Continue home medication. Recent eye surgery. Continue eyedrops Chronic allergic rhinitis. Continue nasal spray Discussed Condition With: Patient, nurse, international trade compliance manager Discharge Planning: Discharge home in good condition. Started on Multaq as per cardiology. Continue cardiac diet. Please see discharge medication reconciliation for medication list. Follow-up with cardiology as outpatient. Activity as tolerated.
== END 2018-07-06 10:22 | disposition home or self-care (01) ==
LOC: NEPC 09:21 → NEDA 12:25 → HCIS 16:33
PROVIDERS: ADMIT Internal Medicine; ATTEND Internal Medicine